=== PATIENT | male | born 1950 | race Hispanic/Latino ===

== ENCOUNTER 2020-05-05 11:22 | Inpatient (IN) | payer BC, MEDICARE ==
[~2020-05-05] VITALS: Ht 175.3 cm; Wt 99.8 kg
[~2020-05-05 11:22] MED LIST: ALLOPURINOL100 MG PO; OXYBUTYNIN CHLO15 MG PO; PENICILLIN V P500 MG PO
[2020-05-05 12:13] LABS: CLARITY,URINE SL CLOUDY (CLEAR); COLOR,URINE YELLOW (YELLOW)
[2020-05-05 12:14] LABS: BILIRUBIN,URINE NEGATIVE (NEGATIVE); KETONES,URINE NEGATIVE (NEGATIVE); LEUKOCYTE ESTERASE ,URINE SMALL (NEGATIVE); NITRITE,URINE NEGATIVE (NEGATIVE); PROTEIN,URINE DIPSTICK 1+ (NEGATIVE); URINE UROBILINOGEN 1 mg/dL (0.2 - 1)
[2020-05-05 12:15] LABS: BACTERIA,URINE RARE /HPF; EPITHELIAL CELLS,URINE FEW /LPF
--- NOTE | 2020-05-05 12:35 | Emergency Department Note ---
History of Present Illnes History of Present Illness Chief Complaint: Genitourinary History of Present Illness This is a 70 year old male arrived to the ED with complaints of supr apubic abdominal pain and urinary retention as well as overflow incontinence for several days. Patient requesting to see Dr. Lynn of the ED. Chief Complaint Comment X 3 DAYS, BURNING WITH URINATION, SPASMS, URGENCY, URINE TRICKLES. DENIES ANY FEVER. 99.5 AT HOME SAME ISSUE 4 YEARS AGO AND TOLD HE HAD A PROSTATE INFECTION AND GIVEN ANTIBIOTICS. 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 Any updates have been documented here. Past Medical History Recent Fever: No Clinical Suspicion of Infectio: No New/Unexplained Change in Ment: No Past Medical History: Hypertension, NE Other Medical History: DVT R LEG BP GOUT Other Surgery: PROSTATE, ACHILLES TENDON BILAT STENTS Social History Smoking Cessation: Never Smoker Counseling Performed: No Alcohol Use: None Any Illegal Drug Use: No Physically hurt or threatened: No Other Last Tetanus: OOD Any Pre-Existing Lines (PICC,: No Review of Systems Review of Systems Constitutional: Reports no symptoms EENTM: Reports no symptoms Cardiovascular: Reports no symptoms Respiratory: Reports no symptoms Gastrointestinal: Reports no symptoms Genitourinary: Reports as per HPI, Reports dysuria, Reports frequency Musculoskeletal: Reports no symptoms Integumentary: Reports no symptoms Neurological: Reports no symptoms Psychological: Reports no symptoms Endocrine: Reports no symptoms Hematological/Lymphatic: Reports no symptoms Physical Exam Related Data Allergies: Coded Allergies: No Known Allergies (Unverified , 05/05/20) Triage Vital Signs Vital Signs Date Time Temp Pulse Resp B/P (MAP) Pulse Ox O2 Delivery O2 Flow Rate FiO2 05/05/20 11:29 98.5 52 18 112/77 Room Air 05/05/20 12:22 100 Vital signs reviewed: Yes Physical Exam CONSTITUTIONAL Constitutional: Present well-developed, Present well-nourished HENT HENT: Present normocephalic, Present atraumatic, Present oropharynx clear/moist, Present nose normal HENT L/R: Present left ext ear normal, Present right ext ear normal EYES Eyes: Reports PERRL, Reports conjunctivae normal NECK Neck: Present ROM normal PULMONARY Pulmonary: Present effort normal, Present breath sounds normal CARDIOVASCULAR Cardiovascular: Present regular rhythm, Present heart sounds normal, Present capillary refill normal, Present normal rate GASTROINTESTINAL Abdominal: Present soft, Present nontender, Present bowel sounds normal GENITOURINARY Genitourinary: Present exam deferred SKIN Skin: Present warm, Present dry MUSCULOSKELETAL Musculoskeletal: Present ROM normal NEUROLOGICAL Neurological: Present alert, Present oriented x 3, Present no gross motor or sensory deficits PSYCHOLOGICAL Psychological: Present mood/affect normal, Present judgement normal Results Laboratory Laboratory Laboratory Tests Test 05/05/20 11:37 Urine Color Yellow (YELLOW) Urine Clarity Sl cloudy (CLEAR) Urine pH 7 (5 - 7) Urine Specific [place] 1.020 (1.010-1.025) Urine Protein 1+ (NEGATIVE) Urine Glucose (UA) Negative (NEGATIVE) Urine Ketones Negative (NEGATIVE) Urine Blood Trace (NEGATIVE) Urine Nitrite Negative (NEGATIVE) Urine Bilirubin Negative (NEGATIVE) Urine Urobilinogen 1 mg/dL (0.2 - 1) Urine Leukocyte Esterase Small (NEGATIVE) Urine RBC 6-10 /HPF (0-5) Urine WBC 6-10 /HPF (0-5) Urine Epithelial Cells Few /LPF (NONE) Urine Bacteria Rare /HPF (NONE) Lab results reviewed: Yes Laboratory comments Laboratory Tests Test 05/05/20 14:29 05/05/20 12:36 05/05/20 11:37 White Blood Count 12.62 x10e3/uL (4.8-10.8) Red Blood Count 5.12 x10e6/uL (4.3-5.7) Hemoglobin 16.4 g/dL (14.0-18.0) Hematocrit 49.5 % (38.2-49.6) Mean Corpuscular Volume 96.7 fL (81-99) Mean Corpuscular Hemoglobin 32.0 pg (28-32) Mean Corpuscular Hemoglobin Concent 33.1 g/dL (31-35) Red Cell Distribution Width 13.3 % (11.7-14.4) Platelet Count 197 x10e3/uL (140-360) Neutrophils (%) (Auto) 72.8 % (38.7-80.0) Lymphocytes (%) (Auto) 16.0 % (18.0-39.1) Monocytes (%) (Auto) 10.5 % (4.4-11.3) Eosinophils (%) (Auto) 0.2 % (0.0-6.0) Basophils (%) (Auto) 0.2 % (0.0-1.0) Neutrophils # (Auto) 9.2 (2.1-6.9) Lymphocytes # (Auto) 2.0 (1.0-3.2) Monocytes # (Auto) 1.3 (0.2-0.8) Eosinophils # (Auto) 0.0 (0.0-0.4) Basophils # (Auto) 0.0 (0.0-0.1) Absolute Immature Granulocyte (auto 0.04 x10e3/uL (0-0.1) Sodium Level 136 mmol/L (136-145) Potassium Level 4.7 mmol/L (3.5-5.1) Chloride Level 101 mmol/L (98-107) Carbon Dioxide Level 27 mmol/L (22-29) Anion Gap 12.7 mmol/L (8-16) Blood Urea Nitrogen 10 mg/dL (7-26) Creatinine 1.20 mg/dL (0.72-1.25) Estimat Glomerular Filtration Rate 60 ML/MIN (60-) BUN/Creatinine Ratio 8 (6-25) Glucose Level 84 mg/dL (74-118) Calcium Level 9.0 mg/dL (8.4-10.2) Total Bilirubin 1.9 mg/dL (0.2-1.2) Aspartate Amino Transf (AST/SGOT) 16 IU/L (5-34) Alanine Aminotransferase (ALT/SGPT) 17 IU/L (0-55) Alkaline Phosphatase 55 IU/L (40-150) Total Protein 7.0 g/dL (6.5-8.1) Albumin 3.5 g/dL (3.5-5.0) Globulin 3.5 g/dL (2.3-3.5) Albumin/Globulin Ratio 1.0 (0.8-2.0) Urine Color Yellow (YELLOW) Urine Clarity Sl cloudy (CLEAR) Urine pH 7 (5 - 7) Urine Specific [place] 1.020 (1.010-1.025) Urine Protein 1+ (NEGATIVE) Urine Glucose (UA) Negative (NEGATIVE) Urine Ketones Negative (NEGATIVE) Urine Blood Trace (NEGATIVE) Urine Nitrite Negative (NEGATIVE) Urine Bilirubin Negative (NEGATIVE) Urine Urobilinogen 1 mg/dL (0.2 - 1) Urine Leukocyte Esterase Small (NEGATIVE) Urine RBC 6-10 /HPF (0-5) Urine WBC 6-10 /HPF (0-5) Urine Epithelial Cells Few /LPF (NONE) Urine Bacteria Rare /HPF (NONE) Assessment & Plan Medical Decision Making MDM 70-year-old male arrives to the ED with complaints of hematuria, dysuria and urinary retention. Patient noted to have a postvoid residual by mouth. Neurology consult, recommended hospital admission. Dr. Lynn requested pt admitted to Dr. Lundberg Assessment & Plan Final Impression: (1) Urinary retention Depart Disposition: ADMITTED Last Vital Signs Date Time Temp Pulse Resp B/P (MAP) Pulse Ox O2 Delivery O2 Flow Rate FiO2 05/05/20 12:22 62 18 116/68 100 Room Air 05/05/20 11:29 98.5 Home Meds Reported Medications Allopurinol (ALLOPURINOL) 100 Mg Tablet, 100 MG PO DAILY, #30 TAB 01/16/15 Oxybutynin Chloride (OXYBUTYNIN CHLORIDE ER) 15 Mg Tab.er.24, 15 MG PO DAILY 01/16/15 Penicillin V Potassium (PENICILLIN V POTASSIUM) 500 Mg Tablet, 500 MG PO TID 01/16/15 LAURENCE HART DO May 05, 2020 12:34
--- OUTSIDE RECORDS SUMMARY | 2020-05-05 12:38 | XMS REPORT | Continuity of Care Document ---
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 Phone [employer] Information [employer] Unavailable Un available Problems Problem Status Onset Date Classification Date Reported Comments Source Pain in joint, other specified sites Active Problem [facility] Pain in joint, pelvic region and thigh Active Problem [facility] Gout, unspecified Active Problem 03/05/2014 [facility] BPH (Hypertrophy (benign) of prostate wi thout urinary obstruction and other lower urinary tract symptoms [LUTS]) Active Problem [facility] Rectal bleed Active Diagnosis 03/05/2014 [facility] Medications Medication Details Route Status Patient Instructions Ordering Provider Order Date Source Tramadol HCl 1 tablet Orally Active 50 mg Orally twice a da y (bid) as needed (prn) Ghebranious 05/22/2013 [facility] Tramadol HCl 1 tablet by mouth Active 50.0 Milligram by mouth twice a day (bid) as needed (prn) Ghebranious 05/17/2013 [facility] Testim 1 application to skin Transdermal Active 1 % Transdermal Once a day Ghebranious 10/03/2012 [facility] Vitamin C as directed Orally Active 500 MG Orally Ghebranious [facility] Allopurinol TAKE 1 TABLET DAILY NA Active 100MG Ghebranious [facility] Vitamin D as directed Orally Active 400 UNIT Orally Ghebranious [facility] Oxybutynin Chloride as directed Orally Active 15 MG Orally daily Ghebranious [facility] Allergies, Adverse Reactions, Alerts Substance Category Reaction Severity Reaction type Status Date Reported Comments Source N.K.D.A. Adverse Reaction Info Not Available Adverse Reaction Active 06/12/2013 [facility] Immunizations No Data Provided for This Section Results No Data Provided for This Section Pathology Reports No Data Provided for This Section Diagnostic Reports No Data Provided for This Section Consultation Notes No Data Provided for This Section Discharge Summaries No Data Provided for This Section History and Physicals No Data Provided for This Section Vital Signs Vital Sign Value Date Comments Source Weight 232 06/12/2013 [facility] Heart Rate 64 06/12/2013 [facility] Diastolic (mm Hg) 70 06/12/2013 [facility] Systolic (mm Hg) 124 06/12/2013 [facility] Weight 236 04/04/2013 [facility] Height 69 0 04/04/2013 [facility] Heart Rate 64 04/04/2013 [facility] Diastolic (mm Hg) 82 04/04/2013 [facility] Systolic (mm Hg) 128 04/04/2013 [facility] Weight 236 04/04/2013 [facility] Height 69 0 04/04/2013 [facility] Heart Rate 64 04/04/2013 [facility] Diastolic (mm Hg) 82 04/04/2013 [facility] Systolic (mm Hg) 128 04/04/2013 [facility] Encounters Location Location Details Encounter Type Encounter Number Reason For Visit Attending Provider ADM Date DC Date Status Source [facility] refill [id number] 04/17/2013 04/17/2013 [facility] refill [id number] 04/17/2013 04/17/2013 [facility] refill [id number] 04/17/2013 04/17/2013 [facility] Refill [id number] 05/22/2013 05/22/2013 [facility] Refill [id number] 05/22/2013 05/22/2013 [facility] Unknown [id number] 06/07/2013 06/07/2013 [facility] Unknown [id number] 06/08/2013 06/08/2013 [facility] HOSP F/U [id number] 06/12/2013 06/12/2013 [facility] Procedures No Data Provided for This Section Assessment and Plan No Data Provided for This Section Plan of Care No Data Provided for This Section Social History Social History Date Source Social History ElementQualifiersDate Rep orted children . 1 Jun 12, 2013 Tobacco Use: . Are you a: never smoker Jun 12, 2013 Marital Status: . Jun 12, 2013 Do you drink alcohol? . 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
--- OUTSIDE RECORDS SUMMARY | 2020-05-05 12:38 | XMS REPORT | Continuity of Care Document ---
Author Author [facility] Organization [facility] Address [address] [place] [address] Phone Unavailable Care Team Providers Care Data Scientist Name Role Phone MANISHA LOUIS M.D. Attphys Unavailable Problems Condition Name Condition Details Condition Category Status Onset Date Resolution Date Last Treatment Date Treating Clinician Comments Source History of Acute embolism and thrombosis of deep vein of lower extremity History of Acute embolism and thrombosis of deep vein of lower extremity Problem Resolved [facility] History of cataract History of cataract Problem Resolved [facility] History of Hernia History of Hernia Problem Resolved [facility] History of Measles without complication History of Measles w ithout complication Problem Resolved [facility] History of mumps History of mumps Problem Resolved [facility] History of Reported Prior Prostate Trouble History of Reported Prior Prostate Trouble Problem Resolved [facility] Pre-operative cardiovascular examination Pre-operative cardiovascular examination Problem Active [facility] Hip pain, right Hip pain, right Problem Active [facility] Acute pain of right knee Acute pain of right knee Problem Active [facility] Gout, unspecified cause, unspecified chronicity, unspe cified site Gout, unspecified cause, unspecified chronicity, unspecified site Problem Active [facility] History of hemorrhoids History of hemorrhoids Problem Resolved [facility] Pain in joint, other specified sites Pain in joint, other specified sites Active Problem 03/05/2014 [facility] Problem Active 2014-03-05 04:17:55 Jeovanny riaelizabeth Moya Pain in joint, pelvic region and thigh Pain in joint, pelvic region and thigh Active Problem 03/05/2014 [facility] Problem Active 2014-03-05 04:17:55 Jeovanny Moya Gout, unspecified Gout , unspecified Active Problem 03/05/2014 [facility] Problem Active 2014-03-05 04:17:55 Bill Moya BPH (Hypertrophy (benign) of prostate wi thout urinary obstruction and other lower urinary tract symptoms [LUTS]) BPH (Hypertrophy (benign) of prostate without urinary obstruction and other lower urinary tract symptoms [LUTS]) Active Problem 03/05/2014 [facility] Problem Active 2014-03-05 04:17:55 Jeovanny benedict [facility] Rectal bleed Rect al bleed Active Diagnosis 03/05/2014 [facility] Diagnosis Active 2014-03-05 04:17:55 Bill Moya Allergies, Adverse Reactions, Alerts Allergy Name Allergy Type Status Severity Reaction(s) Onset Date Inacti ve Date Treating Clinician Comments Source [place]. Active Info Not Available 2013-06-12 00:00:00 Bill Moya Family History Family Member Diagnosis Comments Start Date Stop Date Source Mother Family history of Hemorrhagic Stroke [facility] Mother Family history of Diabetes Mellitus [facility] Mother Family history of Hypertension [facility] Father Family history of Cirrhosis [facility] Sister Family history of Diabetes Mellitus [facility] Brother Family history of Hypertension [facility] Unknown Family Member Family History 2014-03-05 04:17:55 2 04:17:55 Bill Moya Social History Social Habit Start Date Stop Date Quantity Comments Source children 2013-06-12 00:00:00 2013-06-12 00:00:00 Bill Moya Smoking Status Start Date Stop Date Source Former smoker [facility] Medications Ordered Medication Name Filled Medication Name Start Date Stop Da te Current Medication? Ordering Clinician Indication Dosage Frequency Signature (SIG) Comments Components Source Vitamin C 2014-03-05 04:17:55 Yes Judithr Ghebranious as directed [facility] Allopurinol 2014-03-05 04:17:55 Yes Amir Ghebranious TAKE 1 TABLET DAILY [facility] Vitamin D 2014-03-05 04:17:55 Yes Amir Ghebranious as directed [facility] Oxybutynin Chloride 2014-03-05 04:17:55 Yes Amir Ghebran ious as directed [facility] Tramadol HCl 2013-05-22 00:00:00 Yes Amir Ghebranious 1 tablet [facility] Tramadol HCl 2013-05-17 00:00:00 Yes Amir Ghebranious 1 tablet [facility] Testim 2012-10-03 00:00:00 Yes Amir Ghebranious 1 application to skin [facility] Oxybutynin Chloride 5 MG Oral Tablet Oxybutynin Chloride 5 MG Oral Tablet Yes Once a day [facility] Allopurinol 100 MG Oral Tablet Allopurinol 100 MG Oral Tablet Yes QD TAKE 1 TABLET DAILY DIRECTED. [facility] Testim 1 % GEL Testim 1 % GEL Yes AP PLY 1 TUBE DAILY DIRECTED. [facility] traMADol HCl - 50 MG Oral Tablet traMADol HCl - 50 MG Oral Tablet Yes TAKE 1 TABLET EVERY 12 HOURS PRN pain [facility] Meloxicam 7.5 MG Oral Tablet Meloxicam 7.5 MG Oral Tablet Y es TAKE 1 TABLET BY MOUTH EVERY DAY [facility] Vitamin D TABS Vitamin D TABS Yes [facility] Vitamin C CAPS Vitamin C CAPS Yes [facility] Vital Signs Vital Name Observation Time Observation Value Comments Source BP Systolic 2019-07-04 14:26:00 148 mm[Hg] [facility] BP Diastolic 2019-07-04 14:26:00 81 mm[Hg] [facility] Height 2019-07-04 14:26:00 69 [in_us] [facility] Heart Rate 2019-07-04 14:26:00 55 /min [facility] BP Systolic 2018-12-15 12:16:00 134 mm[Hg] [facility] BP Diastolic 2018-12-15 12:16:00 84 mm[Hg] [facility] [place] [facility] Height 2018-12-15 12:16:00 69 [in_us] [facility] Weight 2018-12-15 12:16:00 231 [lb_av] [facility] Body Mass Index Calculated 2018-12-15 12:16:00 34.11 kg/m2 [facility] Heart Rate 2018-12-15 12:16:00 57 /min [facility] O2 SAT 2018-12-15 12:16:00 94 % [facility] BP Systolic 2018-11-02 10:15:00 130 mm[Hg] [facility] BP Diastolic 2018-11-02 10:15:00 87 mm[Hg] [facility] Height 2018-11-02 10:15:00 69 [in_us] [facility] Weight 2018-11-02 10:15:00 235.5 [lb_av] [facility] Body Mass Index Calculated 2018-11-02 10:15:00 34.78 kg/m2 [facility] Temperature 2018-11-02 10:15:00 97.3 [degF] Method: [facility] Heart Rate 2018-11-02 10:15:00 56 /min [facility] O2 SAT 2018-11-02 10:15:00 94 % [facility] Weight 2013-06-12 19:45:00 [facility] Heart Rate 2013-06-12 19:45:00 [facility] Diastolic (mm Hg) 2013-06-12 19:45:00 [facility] Systolic (mm Hg) 2013-06-12 19:45:00 [facility] Weight 2013-04-04 21:45:00 [facility] Height 2013-04-04 21:45:00 [facility] Heart Rate 2013-04-04 21:45:00 [facility] Diastolic (mm Hg) 2013-04-04 21:45:00 [facility] Systolic (mm Hg) 2013-04-04 21:45:00 [facility]anny [facility] Weight 2013-04-04 20:45:00 [facility] Height 2013-04-04 20:45:00 [facility] Heart Rate 2013-04-04 20:45:00 [facility] Diastolic (mm Hg) 2013-04-04 20:45:00 [facility] Systolic (mm Hg) 2013-04-04 20:45:00 [facility]anny [facility] Procedures Procedure Date / Time Performed Performing Clinician [facility] History of Tonsillectomy [facility] History of Prostate Surgery [facility] History of Subcutaneous Tenotomy Of Achilles Tendon [facility] History of Knee replacement [facility] Encounters Start Date/Time End Date/Time Encounter Type Admission Type Attendi [facility] Facility Care Department Encounter ID Source 2019-07-04 13:00:00 2019-07-04 13:00:00 Appointment; MANISHA LOUIS M.D. SZETO, JOCELYN, M.D. [facility] at [facility] [id number] [facility] 2019-06-19 11:00:00 2019-06-19 11:00:00 Appointment; MANISHA LOUIS M.D. SZETO, JOCELYN, M.D. [facility] [id number] [facility] 2019-02-05 18:15:00 2019-02-05 15:13:00 Inpatient [id number] 2018-12-15 11:30:00 2018-12-15 11:30:00 Appointment; MANISHA LOUIS M.D. SZETO, JOCELYN, M.D. [facility] Orthoped[facility] at [facility] [id number] [facility] 2018-12-13 13:00:00 2018-12-13 13:00:00 Appointment; MANISHA LOUIS M.D. SZETO, JOCELYN, M.D. [facility] [id number] [facility] 2018-11-02 09:30:00 2018-11-02 09:30:00 Appointment; MANISHA LOUIS M.D. SZETO, JOCELYN, M.D. [facility] Orthoped[facility] at [facility] [id number] [facility] 2013-06-12 14:45:00 2013-06-12 14:45:00 Outpatient [facility] [id number] [employer] 2013-06-07 18:11:00 2013-06-07 18:11:00 Outpatient [facility] [id number] [employer] 2013-04-17 12:09:00 2013-04-17 12:09:00 Outpatient [facility] [id number] [employer] Results Test Description Test Time Test Comments Results Result Comments Source [[facility]] CMP W/EGFR 2018-11-02 10:33:01 Test Item Sodium Level (test code = 2951-2) 138 {mEq/l} 135-145 Potassium Level (test code = 2823-3) 4.3 {mEq/l} 3.5-5.1 Chloride Level (test code = 2075-0) 103 {mEq/l} 95-109 Carbon Dioxide (test code = 8-9) 28 {mEq/l} 24-32 AGAP (test code = 12335-3) 11.3 {mEq/l} 10.0-20.0 Glucose Lvl (test code = 2345-7) 96 mg/dl 70-99 Adult reference range values reflect the clinical guidelinesof the [place] [employer]. Creatinine Lvl (test code = 2160-0) 1.20 mg/dl 0.50-1.40 Blood Urea Nitrogen (test code = 3094-0) 16 mg/dl 7-22 BUN/Creatinine Ratio (test code = 3097-3) 13 6-25 Total Protein (test code = 2885-2) 7.5 g/dl 6.4-8.4 Albumin Lvl (test code = 1751-7) 4.0 g/dl 3.5-5.0 Globulin (test code = 23080-1) 3.5 g/dl 2.7-4.2 A/G Ratio (test code = 1759-0) 1.1 0.7-1.6 Calcium Level Total (test code = 10829-7) 8.6 mg/dl 8.5-10.5 ALT (test code = 1743-4) 27 u/l 0-65 AST (test code = 65689-6) 13 u/l 0-37 Bili Total; Above High Threshold (test code = 1975-2) 1.5 mg/dl 0.2-1.3 Alk Phos (test code = 1783-0) 53 u/l 39-136 eGFR (test code = 65933-0) 61 {ML/MIN/1.7} The eGFR is calculated using the CKD-EPI formula. In most young, healthyindividuals the eGFR will be >90 mL/min/1.73m2. The eGFR declines with age. AneGFR of 60-89 may be normal in some populations, particularly the elderly, forwhom the CKD-EPI formula has not been extensively validated. Use of the eGFR isnot recommended in the following populations:Individuals with unstable creatinine concentrations, including patients and those with serious co-morbid conditions.Patients with extremes in muscle mass or diet.The data above are obtained from the National Kidney Disease Education Program(NKDEP) which additionally recommends that when the eGFR is used in patientswith extremes of body mass index for purposes of drug dosing, the eGFR shouldbe multiplied by the estimated BMI. [facility][QLH] URIC [id number] 10:33:01* Test Item Value Reference Range Interpretation Comments Uric Acid (test code = 3084-1) 6.2 mg/dl 3.8-8.0 [facility][U] XRAY KNEE 4 OR MORE VWS RIGHT [id number] 09:36:00Images acquired, not reported on this accession number.[facility]
[2020-05-05 12:49] LABS: BASOPHILS % 0.2 % (0.0-1.0); EOSINOPHILS % 0.2 % (0.0-6.0); HEMATOCRIT 49.5 % (38.2-49.6); HEMOGLOBIN 16.4 g/dL (14.0-18.0); MEAN CORPUSCULAR HGB CONC 33.1 g/dL (31-35); MEAN CORPUSCULAR VOLUME 96.7 fL (81-99); MONOCYTES # (AUTO) 1.3 (0.2-0.8); MONOCYTES % 10.5 % (4.4-11.3); NEUTROPHILS # (AUTO) 9.2 (2.1-6.9); NEUTROPHILS % 72.8 % (38.7-80.0); PLATELET COUNT 197 x10e3/uL (140-360); RED BLOOD COUNT 5.12 x10e6/uL (4.3-5.7); RED CELL DISTRIBUTION WIDTH 13.3 % (11.7-14.4)
[2020-05-05 13:16] LABS: ALBUMIN 3.5 g/dL (3.5-5.0); ANION GAP 12.7 mmol/L (8-16); CREATININE, SERUM 1.2 mg/dL (0.72-1.25); POTASSIUM 4.7 mmol/L (3.5-5.1)
--- NOTE | 2020-05-05 13:53 | NUR ---
BLADDER SCAN 138
--- OUTSIDE RECORDS SUMMARY | 2020-05-05 15:23 | XMS REPORT | Continuity of Care Document ---
Author Author [facility] Organization [facility] Address [address] [place] [address] Phone Unavailable Care Team Providers Care Training Specialist Name Role Phone MANISHA LOUIS M.D. Attphys Unavailable Problems Condition Name Condition Details Condition Category Status Onset Date Resolution Date Last Treatment Date Treating Clinician Comments Source History of Acute embolism and thrombosis of deep vein of lower extremity History of Acute embolism and thrombosis of deep vein of lower extremity Problem Resolved [facility] History of cataract History of cataract Problem Resolved [facility] History of Hernia History of Hernia Problem Resolved [facility] History of Measles without complication History of Measles w ithout complication Problem Resolved [facility] History of mumps History of mumps Problem Resolved [facility] History of Reported Prior Prostate Trouble History of Reported Prior Prostate Trouble Problem Resolved [facility] Pre-operative cardiovascular examination Pre-operative cardiovascular examination Problem Active [facility] Hip pain, right Hip pain, right Problem Active [facility] Acute pain of right knee Acute pain of right knee Problem Active [facility] Gout, unspecified cause, unspecified chronicity, unspe cified site Gout, unspecified cause, unspecified chronicity, unspecified site Problem Active [facility] History of hemorrhoids History of hemorrhoids Problem Resolved [facility] Pain in joint, other specified sites [...] Source Mother Family history of Hemorrhagic Stroke [facility] Mother Family history of Diabetes Mellitus [facility] Mother Family history of Hypertension [facility] Father Family history of Cirrhosis [facility] Sister Family history of Diabetes Mellitus [facility] Brother Family history of Hypertension [facility] Unknown Family Member Family History 2014-03-05 04:17:55 2 04:17:55 Bill Moya Social History Social Habit Start Date Stop Date Quantity Comments Source children 2013-06-12 00:00:00 2013-06-12 00:00:00 Bill Moya Smoking Status Start Date Stop Date Source Former smoker [facility] Medications Ordered Medication Name Filled Medication Name Start Date Stop Da te Current Medication? Ordering Clinician Indication Dosage Frequency Signature (SIG) Comments Components Source Vitamin C 2014-03-05 04:17:55 Yes Judithr Ghebranious as directed [facility] Allopurinol 2014-03-05 04:17:55 Yes Amir Ghebranious TAKE 1 TABLET DAILY [facility] Vitamin D 2014-03-05 04:17:55 Yes Amir Ghebranious as directed [facility] Oxybutynin Chloride 2014-03-05 04:17:55 Yes Amir Ghebran ious as directed [facility] Tramadol HCl 2013-05-22 00:00:00 Yes Amir Ghebranious 1 tablet [facility] Tramadol HCl 2013-05-17 00:00:00 Yes Amir Ghebranious 1 tablet [facility] Testim 2012-10-03 00:00:00 Yes Amir Ghebranious 1 application to skin [facility] Oxybutynin Chloride 5 MG Oral Tablet Oxybutynin Chloride 5 MG Oral Tablet Yes Once a day [facility] Allopurinol 100 MG Oral Tablet Allopurinol 100 MG Oral Tablet Yes QD TAKE 1 TABLET DAILY DIRECTED. [facility] Testim 1 % GEL Testim 1 % GEL Yes AP PLY 1 TUBE DAILY DIRECTED. [facility] traMADol HCl - 50 MG Oral Tablet traMADol HCl - 50 MG Oral Tablet Yes TAKE 1 TABLET EVERY 12 HOURS PRN pain [facility] Meloxicam 7.5 MG Oral Tablet Meloxicam 7.5 MG Oral Tablet Y es TAKE 1 TABLET BY MOUTH EVERY DAY [facility] Vitamin D TABS Vitamin D TABS Yes [facility] Vitamin C CAPS Vitamin C CAPS Yes [facility] Vital Signs Vital Name Observation Time Observation Value Comments Source BP Systolic 2019-07-04 14:26:00 148 mm[Hg] [facility] BP Diastolic 2019-07-04 14:26:00 81 mm[Hg] [facility] Height 2019-07-04 14:26:00 69 [in_us] [facility] Heart Rate 2019-07-04 14:26:00 55 /min [facility] BP Systolic 2018-12-15 12:16:00 134 mm[Hg] [facility] BP Diastolic 2018-12-15 12:16:00 84 mm[Hg] [facility] [place] [facility] Height 2018-12-15 12:16:00 69 [in_us] [facility] Weight 2018-12-15 12:16:00 231 [lb_av] [facility] Body Mass Index Calculated 2018-12-15 12:16:00 34.11 kg/m2 [facility] Heart Rate 2018-12-15 12:16:00 57 /min [facility] O2 SAT 2018-12-15 12:16:00 94 % [facility] BP Systolic 2018-11-02 10:15:00 130 mm[Hg] [facility] BP Diastolic 2018-11-02 10:15:00 87 mm[Hg] [facility] Height 2018-11-02 10:15:00 69 [in_us] [facility] Weight 2018-11-02 10:15:00 235.5 [lb_av] [facility] Body Mass Index Calculated 2018-11-02 10:15:00 34.78 kg/m2 [facility] Temperature 2018-11-02 10:15:00 97.3 [degF] Method: Oral [facility] Heart Rate 2018-11-02 10:15:00 56 /min [facility] O2 SAT 2018-11-02 10:15:00 94 % [facility] Weight 2013-06-12 19:45:00 [facility] Heart Rate 2013-06-12 19:45:00 [facility] Diastolic (mm Hg) 2013-06-12 19:45:00 [facility] Systolic (mm Hg) 2013-06-12 19:45:00 [facility] Weight 2013-04-04 21:45:00 [facility] Height 2013-04-04 21:45:00 [facility] Heart Rate 2013-04-04 21:45:00 [facility] Diastolic (mm Hg) 2013-04-04 21:45:00 [facility] Systolic (mm Hg) 2013-04-04 21:45:00 [facility] Weight 2013-04-04 20:45:00 [facility] Height 2013-04-04 20:45:00 [facility] Heart Rate 2013-04-04 20:45:00 [facility] Diastolic (mm Hg) 2013-04-04 20:45:00 [facility] Systolic (mm Hg) 2013-04-04 20:45:00 [facility] Procedures Procedure Date / Time Performed Performing Clinician [facility] e History of Tonsillectomy [facility] History of Prostate Surgery [facility] History of Subcutaneous Tenotomy Of Achilles Tendon [facility] History of Knee replacement [facility] Encounters Start Date/Time End Date/Time Encounter Type Admission Type [facility] Facility Care Department Encounter ID Source 2019-07-04 13:00:00 2019-07-04 13:00:00 Appointment; MANISHA LOUIS M.D. SZETO, JOCELYN, M.D. [facility] Orthopedics at [facility] [id number] [facility] 2019-06-19 11:00:00 2019-06-19 11:00:00 Appointment; MANISHA LOUIS M.D. SZETO, JOCELYN, M.D. [facility] [id number] [facility] 2019-02-05 18:15:00 2019-02-05 15:13:00 Inpatient E [id number] 2018-12-15 11:30:00 2018-12-15 11:30:00 Appointment; MANISHA LOUIS M.D. SZETO, JOCELYN, M.D. [facility] Orthopedics at [facility] [id number] [facility] 2018-12-13 13:00:00 2018-12-13 13:00:00 Appointment; MANISHA LOUIS M.D. SZETO, JOCELYN, M.D. [facility] [id number] [facility] 2018-11-02 09:30:00 2018-11-02 09:30:00 Appointment; MANISHA LOUIS M.D. SZETO, JOCELYN, M.D. [facility] Orthopedics at [facility] [id number] [facility] 2013-06-12 14:45:00 2013-06-12 14:45:00 Outpatient [facility] [id number] [employer] 2013-06-07 18:11:00 2013-06-07 18:11:00 Outpatient [facility] [id number] [employer]Works 2013-04-17 12:09:00 2013-04-17 12:09:00 Outpatient [facility] [id number] [employer] Results Test Description Test Time Test Comments Results Result Comments Source [[facility]] CMP W/EGFR 2018-11-02 10:33:01 Test Item Sodium Level (test code = 2951-2) 138 {mEq/l} 135-145 Potassium Level (test code = 2823-3) 4.3 {mEq/l} 3.5-5.1 Chloride Level (test code = 2075-0) 103 {mEq/l} 95-109 Carbon Dioxide (test code = 8-9) 28 {mEq/l} 24-32 AGAP (test code = 76364-9) 11.3 {mEq/l} 10.0-20.0 Glucose Lvl (test code = 2345-7) 96 mg/dl 70-99 Adult reference range values reflect the clinical guidelinesof the [place] [employer]. Creatinine Lvl (test code = 2160-0) 1.20 mg/dl 0.50-1.40 Blood Urea Nitrogen (test code = 3094-0) 16 mg/dl 7-22 BUN/Creatinine Ratio (test code = 3097-3) 13 6-25 Total Protein (test code = 2885-2) 7.5 g/dl 6.4-8.4 Albumin Lvl (test code = 1751-7) 4.0 g/dl 3.5-5.0 Globulin (test code = 33229-9) 3.5 g/dl 2.7-4.2 A/G Ratio (test code = 1759-0) 1.1 0.7-1.6 Calcium Level Total (test code = 96401-0) 8.6 mg/dl 8.5-10.5 ALT (test code = 1743-4) 27 u/l 0-65 AST (test code = 71320-3) 13 u/l 0-37 Bili Total; Above High Threshold (test code = 1975-2) 1.5 mg/dl 0.2-1.3 Alk Phos (test code = 1783-0) 53 u/l 39-136 eGFR (test code = 32993-0) 61 {ML/MIN/1.7} The eGFR is calculated using [...] eGFR shouldbe multiplied by the estimated BMI. [facility][QLH] URIC [id number] 10:33:01* Test Item Value Reference Range Interpretation Comments Uric Acid (test code = 3084-1) 6.2 mg/dl 3.8-8.0 [facility][U] XRAY KNEE 4 OR MORE VWS RIGHT [id number] 09:36:00Images acquired, not reported on this accession number.[facility]
--- OUTSIDE RECORDS SUMMARY | 2020-05-05 15:23 | XMS REPORT | Continuity of Care Document ---
Author Author [employer], VENESSA MONGE Organization [employer] Address Unknown Phone Unavailable Care Team Providers Care Float Remover Name Role Phone [employer] Unavailable Un available Problems Problem Status Onset Date Classification Date Reported Comments Source Pain in joint, other specified sites Active Problem [facility] Pain in joint, pelvic region and thigh Active Problem [facility] Gout, unspecified Active Problem 03/05/2014 [facility] BPH (Hypertrophy (benign) of prostate wi thout urinary obstruction and other lower urinary tract symptoms [LUTS]) Active Problem [facility] Rectal bleed Active Diagnosis 03/05/2014 [facility] Medications Medication Details Route Status Patient Instructions Ordering Provider Order Date Source Tramadol HCl 1 tablet Orally Active 50 mg Orally twice a da y (bid) as needed (prn) Ghebranious 05/22/2013 [facility] Tramadol HCl 1 tablet by mouth Active 50.0 Milligram by mouth twice a day (bid) as needed (prn) Ghebranious 05/17/2013 [facility] Testim 1 application to skin Transdermal Active 1 % Transdermal Once a day Ghebranious 10/03/2012 [facility] Vitamin C as directed Orally Active 500 MG Orally Ghebranious [facility] Allopurinol TAKE 1 TABLET DAILY NA Active 100MG Ghebranious [facility] Vitamin D as directed Orally Active 400 UNIT Orally Ghebranious [facility] Oxybutynin Chloride as directed Orally Active 15 MG Orally daily Ghebranious [facility] Allergies, Adverse Reactions, Alerts Substance Category Reaction Severity Reaction type Status Date Reported Comments Source N.K.D.A. Adverse Reaction Info Not Available Adverse Reaction Active 06/12/2013 [facility] Immunizations No Data [...] Provider ADM Date DC Date Status Source [facility] refill [id number] 04/17/2013 04/17/2013 [facility] refill [id number] 04/17/2013 04/17/2013 [facility] refill [id number] 04/17/2013 04/17/2013 [facility] Refill [id number] 05/22/2013 05/22/2013 [facility] Refill [id number] 05/22/2013 05/22/2013 [facility] Unknown [id number] 06/07/2013 06/07/2013 [facility] Unknown [id number] 06/08/2013 06/08/2013 [facility] HOSP F/U [id number] 06/12/2013 06/12/2013 [facility] Procedures No [...] Data Base Specialist Jun 12, 2013 06/12/2013 [facility] Family History Value Date S ource QualifierDescriptionCommentDate Reported Mother HTN Jun 12, 2013 Siblings HTN Jun 12, 2013 03/05/2014 [facility] Advance Directives No Data Provided for This Section Functional Status No Data Provided for This Section
--- NOTE | 2020-05-05 16:01 | NUR ---
DR. CORDOVA AT BEDSIDE EVALUATING PATIENT
[2020-05-05] MEDS ORDERED: CEFTRIAXONE SOD 1 GM/NS 50 ML 50 ML IV ONE (17:15)
[2020-05-05] MEDS ORDERED: HYDRALAZINE HCL 25 MG TAB PO PRN (18:30)
[2020-05-05] MEDS ORDERED: HYDROCODONE/APAP 5MG-325MG TAB PO PRN (18:30)
[2020-05-05] MEDS ORDERED: TAMSULOSIN HCL 0.4 MG CAP PO ONE (18:50)
[2020-05-05 20:00] VITALS: BP 108/70
[2020-05-05] MEDS: SODIUM CHLORIDE 0.9% 1000ML 1,000 ML IV SCH (20:18)
[2020-05-05 21:00] VITALS: BP 108/70
[2020-05-05] MEDS ORDERED: METOPROLOL TART25 MG PO (23:01)
[2020-05-05] MEDS ORDERED: PLAVIX75 MG PO (23:01)
[2020-05-05] MEDS ORDERED: MYRBETRIQ50 MG PO (23:01)
[2020-05-05] MEDS ORDERED: LISINOPRIL10 MG PO (23:01)
[2020-05-05] MEDS ORDERED: FINASTERIDE5 MG PO (23:01)
[2020-05-05] MEDS ORDERED: LIPITOR20 MG PO (23:01)
[2020-05-05] MEDS ORDERED: LEXAPRO10 MG PO (23:01)
[2020-05-05] MEDS ORDERED: ASPIRIN81 MG PO (23:01)
[2020-05-05 23:49] VITALS: BP 108/70
[2020-05-06] VITALS (8 sets, daily range): BP systolic 101–115; BP diastolic 56–71
--- NOTE | 2020-05-06 00:54 | History and Physical ---
CHIEF COMPLAINT: Urinary retention and abdominal pain with enlarged prostate and recurrent urinary tract infection, prostatitis. HISTORY OF PRESENT ILLNESS: The patient is a 70-year-old male, came to emergency room complaining of suprapubic abdominal pain associated with distention, urinary retention, and also with incontinence palpable for the past few days. The patient is also having problems recurrently. He had TURP procedure years ago. The patient complained of increasing burning sensation when he urinates associated with spasm, urgency, and trickles. The patient stated this has been going on worsening for the past three days, but prior to that he had episodic problem. The patient is now admitted for further treatment. Antibiotic initiated. Morel catheter placed. The patient will be seen by Dr. Win Lynn, his urologist. PAST MEDICAL HISTORY: Enlarged prostate. History of TURP. Hypertension. History of DVT of the right lower extremity. Gout. Prostate with TURP procedure. Bilateral deep tendon repair. Coronary artery disease with stent placement. SOCIAL HISTORY: The patient does not smoke or use alcohol. No regular drugs. ALLERGIES: NO KNOWN ALLERGIES. HOME MEDICATIONS: The patient is on allopurinol, oxybutynin, and penicillin. REVIEW OF SYSTEMS: Abdominal and suprapubic distention with urinary retention and pain. Dysuria. Urgency. Urinary trickle. No chest pain. No shortness of breath. No headaches. No visual changes. No neurological deficit. PHYSICAL EXAMINATION: VITAL SIGNS: Temperature is 99, blood pressure 108/70, pulse rate is 54, respirations 20. GENERAL: The patient is not in acute distress. HEENT: Normocephalic, atraumatic. Anicteric. NECK: Supple grossly. PULMONARY: Diminished breath sounds bilaterally. CARDIOVASCULAR: S1, S2. Regular rate and rhythm. ABDOMEN: Discomfort with guarding distention in the suprapubic area. Morel catheter placement. EXTREMITIES: No cyanosis or edema. NEUROLOGIC: No focal deficit. LABORATORY DATA: WBC 13, hemoglobin 16.4, hematocrit of 49.5, platelets 197. Chemistry; sodium 136, potassium 4.7, chloride 101, bicarb 27, BUN 10, creatinine 1.2, glucose is 84. Serology; COVID-19 PCR pending. Urinalysis; cloudy urine, 1+ protein, trace blood, small leukocyte esterase, wbc of 10. IMPRESSION: 1. Urinary retention post Morel catheter placement. 2. Enlarged prostate with recurrent urinary tract infection and prostatitis. 3. History of TURP procedures. 4. Baseline hypertension, dyslipidemia, and gout. PLAN: Continue with antibiotics, Rocephin. Consultation with Dr. Win Lynn. The patient will need TURP after treatment for the bladder infection. Repeat lab work as mentioned. We will resume home medication. We will get chest x-ray portable. We will follow up on recommendation by Dr. Win Lynn. MD KELLEY Mak/MODL /[id number]
[2020-05-06] MEDS: SODIUM CHLORIDE 0.9% 1000ML 1,000 ML IV SCH ×2 (04:47→16:57)
[2020-05-06] MEDS: CEFTRIAXONE SOD 1 GM/NS 50 ML 50 ML IV SCH ×2 (04:47→16:57)
[2020-05-06 06:04] LABS: BASOPHILS % 0.3 % (0.0-1.0); EOSINOPHILS % 0.2 % (0.0-6.0); HEMATOCRIT 45.2 % (38.2-49.6); HEMOGLOBIN 15.3 g/dL (14.0-18.0); LYMPHOCYTES % 15.4 % (18.0-39.1); MEAN CORPUSCULAR HEMOGLOBIN 32.3 pg (28-32); MEAN CORPUSCULAR HGB CONC 33.8 g/dL (31-35); MEAN CORPUSCULAR VOLUME 95.6 fL (81-99); MONOCYTES # (AUTO) 1.2 (0.2-0.8); MONOCYTES % 9.4 % (4.4-11.3); NEUTROPHILS # (AUTO) 9.5 (2.1-6.9); NEUTROPHILS % 74.5 % (38.7-80.0); PLATELET COUNT 173 x10e3/uL (140-360); RED BLOOD COUNT 4.73 x10e6/uL (4.3-5.7); RED CELL DISTRIBUTION WIDTH 13.4 % (11.7-14.4)
[2020-05-06 06:45] LABS: ALBUMIN/GLOBULIN RATIO 0.9 (0.8-2.0); ANION GAP 12.8 mmol/L (8-16); CALCIUM 8.6 mg/dL (8.4-10.2); CREATININE, SERUM 1.21 mg/dL (0.72-1.25); POTASSIUM 4.8 mmol/L (3.5-5.1)
--- NOTE | 2020-05-06 07:00 | NUR ---
RECEIVED BEDSIDE SHIFT REPORT FROM OFF GOING NIGHT NURSE. PATIENT ABLE TO VOICE NEEDS. PATIENT IN STABLE CONDITION, NO S/S OF DISTRESS NOTED. RESPIRATIONS, EVEN AND NONLABORED. TELEMETRY APPLIED. MADDOX CATHETER APPLIED DRAINING DARK RED URINE INTO THE DRAINAGE BAG. IV FLUIDS INFUSING, SITE ASYMPTOMATIC AND PATENT, TRANSPARENT DRESSING C/D/I. BED IN LOWEST POSITION AND LOCKED, SIDE RAILS X 2, NONSKID SOCKS APPLIED. CALL LIGHT WITHIN REACH.
[2020-05-06] MEDS: FAMOTIDINE 20 MG TAB PO SCH ×2 (09:07→16:57)
[2020-05-06] MEDS: ALLOPURINOL 100 MG TAB PO SCH (09:08)
[2020-05-06] MEDS: OXYBUTYNIN CHLORIDE XL 5 MG TAB PO SCH (09:08)
--- NOTE | 2020-05-06 19:08 | NUR ---
COMPLETED BEDSIDE SHIFT REPORT AND ROUNDING WITH ONCOMING NIGHT NURSE. PATIENT ABLE TO VOICE NEEDS. PATIENT IN STABLE CONDITION, NO S/S OF DISTRESS NOTED. RESPIRATIONS, EVEN AND NONLABORED. TELEMETRY APPLIED. MADDOX CATHETER APPLIED DRAINING DARK RED URINE INTO THE DRAINAGE BAG. IV FLUIDS INFUSING, SITE ASYMPTOMATIC AND PATENT, TRANSPARENT DRESSING C/D/I. BED IN LOWEST POSITION AND LOCKED, SIDE RAILS X 2, NONSKID SOCKS APPLIED. CALL LIGHT WITHIN REACH.
[2020-05-06] MEDS: TAMSULOSIN HCL 0.4 MG CAP PO SCH (20:23)
[2020-05-07] VITALS (8 sets, daily range): BP systolic 106–120; BP diastolic 61–77
[2020-05-07] MEDS: SODIUM CHLORIDE 0.9% 1000ML 1,000 ML IV SCH ×3 (01:30→22:02)
[2020-05-07] MEDS: CEFTRIAXONE SOD 1 GM/NS 50 ML 50 ML IV SCH ×2 (05:32→16:40)
--- NOTE | 2020-05-07 06:40 | NUR ---
RECEIVED BEDSIDE SHIFT REPORT FROM OFF GOING NURSE. PATIENT IS RESTING IN BED. NO ACUTE DISTRESS NOTED AT THIS TIME. CALL LIGHT WITHIN REACH, BED IN THE LOWEST POSITION.
[2020-05-07 07:07] LABS: BASOPHILS % 0.3 % (0.0-1.0); EOSINOPHILS # (AUTO) 0.1 (0.0-0.4); EOSINOPHILS % 0.8 % (0.0-6.0); HEMATOCRIT 43.9 % (38.2-49.6); HEMOGLOBIN 15.1 g/dL (14.0-18.0); LYMPHOCYTES # (AUTO) 2.2 (1.0-3.2); LYMPHOCYTES % 21.2 % (18.0-39.1); MEAN CORPUSCULAR HEMOGLOBIN 32.7 pg (28-32); MEAN CORPUSCULAR HGB CONC 34.4 g/dL (31-35); MONOCYTES # (AUTO) 1.1 (0.2-0.8); MONOCYTES % 10.4 % (4.4-11.3); NEUTROPHILS # (AUTO) 6.8 (2.1-6.9); NEUTROPHILS % 66.5 % (38.7-80.0); PLATELET COUNT 176 x10e3/uL (140-360); RED BLOOD COUNT 4.62 x10e6/uL (4.3-5.7); RED CELL DISTRIBUTION WIDTH 13.2 % (11.7-14.4)
[2020-05-07 07:22] LABS: ANION GAP 11.2 mmol/L (8-16); BLOOD UREA NITROGEN 12 mg/dL (7-26); BUN/CREATININE RATIO 10 (6-25); CALCIUM 8.1 mg/dL (8.4-10.2); CARBON DIOXIDE 26 mmol/L (22-29); CHLORIDE 104 mmol/L (98-107); CREATININE, SERUM 1.18 mg/dL (0.72-1.25); EST GLOMERULAR FILTRATION RATE > 60 ML/MIN (60-); GLUCOSE 93 mg/dL (74-118); POTASSIUM 4.2 mmol/L (3.5-5.1); SODIUM 137 mmol/L (136-145)
[2020-05-07] MEDS: FAMOTIDINE 20 MG TAB PO SCH ×2 (08:36→16:40)
[2020-05-07] MEDS: OXYBUTYNIN CHLORIDE XL 5 MG TAB PO SCH (08:36)
[2020-05-07] MEDS: ALLOPURINOL 100 MG TAB PO SCH (08:37)
[2020-05-07] MEDS: ESCITALOPRAM OXALATE 10 MG TAB PO SCH (17:09)
--- NOTE | 2020-05-07 17:17 | NUR ---
ASKED DR. MACKENZIE IF I CAN CONTINUE HOME MEDICATIONS FOR PATIENT. STATED "NO".
--- NOTE | 2020-05-07 19:07 | NUR ---
BEDSIDE SHIFT REPORT GIVEN TO ONCOMING NURSE. PATIENT IS RESTING IN RECLINER, NO ACUTE DISTRESS NOTED AT THIS TIME. AT BEDSIDE. CALL LIGHT WITHIN REACH. BED IN THE LOWEST POSITION.
[2020-05-07] MEDS: TAMSULOSIN HCL 0.4 MG CAP PO SCH (20:19)
[2020-05-08] VITALS (7 sets, daily range): BP systolic 102–126; BP diastolic 56–94
[2020-05-08] MEDS: CEFTRIAXONE SOD 1 GM/NS 50 ML 50 ML IV SCH (05:46)
--- NOTE | 2020-05-08 06:30 | NUR ---
Received bedside shift report from off going nurse. Patient is resting in bed, no acute distress noted at this time. Call light within reach. Bed in the lowest position.
[2020-05-08] MEDS: OXYBUTYNIN CHLORIDE XL 5 MG TAB PO SCH (08:21)
[2020-05-08] MEDS: ALLOPURINOL 100 MG TAB PO SCH (08:21)
[2020-05-08] MEDS: ESCITALOPRAM OXALATE 10 MG TAB PO SCH (08:21)
[2020-05-08] MEDS: FAMOTIDINE 20 MG TAB PO SCH ×2 (08:21→16:33)
[2020-05-08] MEDS: FINASTERIDE 5 MG TAB PO SCH (08:21)
[2020-05-08] MEDS: AMPICILLIN SOD 1 GM/NS 50ML 50 ML IV SCH ×2 (09:34→17:00)
[2020-05-08] MEDS ORDERED: SODIUM CHLORIDE 0.9% 250ML 250 ML ONE (10:53)
[2020-05-08] MEDS ORDERED: IOPAMIDOL 370 MG/ML 200 ML INFUS..BTL INJ ONE (10:53)
--- NOTE | 2020-05-08 12:35 | Diagnostic Imaging Report ---
CT of the abdomen and pelvis with contrast TECHNIQUE: CT of the abdomen and pelvis CT of the abdomen and pelvis with contrast TECHNIQUE: CT of the abdomen and pelvis WITHOUT and WITH intravenous contrast and WITHOUT oral contrast. Dose modulation, iterative reconstruction, and/or weight-based adjustment of the mA/kV was utilized to reduce the radiation dose to as low as reasonably achievable. IV CONTRAST: 100 mL of Isovue-370 ORAL CONTRAST: None RADIATION DOSE: Total DLP: 1757 mGy*cm COMPLICATIONS: None INDICATION: ^HEMATURIA PROTOCOL ^[id number] ^5. COMPARISON: None. FINDINGS: LOWER THORAX: Dependent subsegmental atelectasis is noted. Coronary artery calcifications are noted. Small hiatal hernia is noted. HEPATOBILIARY: No focal hepatic lesions. Gallbladder is unremarkable. No biliary ductal dilatation. SPLEEN: No splenomegaly. PANCREAS: No focal masses or ductal dilatation. ADRENALS: No adrenal nodules. KIDNEYS/URETERS: Noncontrast images are negative for renal calculus. Negative for ureteral or bladder calculus. Postcontrast images damages symmetric cortical enhancement without suspicious enhancing mass. Symmetric excretion of contrast is noted within nondilated ureters. Negative for intraluminal upper urinary tract filling defect. PELVIC ORGANS/BLADDER: Urinary bladder is decompressed by Morel catheter with a few foci of air. There is questionable wall thickening versus artifact of underdistention. Prostate is enlarged measuring approximately 6.1 x 5.0 x 4.4 cm for a total volume of 87 cc. PERITONEUM/RETROPERITONEUM: No free air or fluid. Supraumbilical fat-containing hernia is noted. Umbilical fat-containing hernia is noted. LYMPH NODES: No lymphadenopathy. VESSELS: Negative for abdominal aortic aneurysm. GI TRACT: Negative for bowel obstruction. Stomach and portions of the colon are decompressed limiting evaluation. Normal appendix is noted. Numerous diverticula are identified within the sigmoid colon without surrounding inflammatory changes. BONES AND SOFT TISSUES: No acute osseous abnormality. Advanced facet arthropathy the lower lumbar spine is noted. Mild to moderate multilevel disc space narrowing is noted. No suspicious lytic or blastic lesion is noted. Postsurgical change from partially visualized right hip arthroplasty are noted. Moderate to severe degenerative change of the left hip joint space is noted with near complete joint space loss, particular sclerosis and large osteophyte formation. Pubic symphysis is not widened. Soft tissues are unremarkable. IMPRESSION: 1. Negative for nephrolithiasis. Symmetric cortical enhancement without suspicious mass or intraluminal upper urinary tract filling defect is noted. 2. Urinary bladder is decompressed by Morel catheter with questionable wall thickening. 3. Prostatomegaly. 4. Uncomplicated colonic diverticulosis. 5. Coronary artery calcifications. 6. Small hiatal hernia. 7. Fat-containing supraumbilical and umbilical hernias. 8. Severe osteoarthritis of the left hip. Advanced facet arthropathy the lower lumbar spine. Postsurgical changes from right hip arthroplasty. Signed by: Robert Toney MD on 05/08/2020 12:32 PM
--- NOTE | 2020-05-08 19:06 | NUR ---
BEDSIDE SHIFT REPORT GIVEN TO ONCOMING NURSE. PATIENT IS SITTING UP IN RECLINER, NO ACUTE DISTRESS NOTED. CALL LIGHT WITHIN REACH. BED IN THE LOWEST POSITION.
[2020-05-08] MEDS: TAMSULOSIN HCL 0.4 MG CAP PO SCH (20:06)
[2020-05-08] MEDS: SODIUM CHLORIDE 0.9% 1000ML 1,000 ML IV SCH (20:06)
[2020-05-09] VITALS (7 sets, daily range): BP systolic 118–129; BP diastolic 69–81
[2020-05-09] MEDS: SODIUM CHLORIDE 0.9% 1000ML 1,000 ML IV SCH ×2 (00:42→11:53)
[2020-05-09] MEDS: AMPICILLIN SOD 1 GM/NS 50ML 50 ML IV SCH ×3 (02:19→17:31)
[2020-05-09] MEDS: FAMOTIDINE 20 MG TAB PO SCH ×2 (09:29→17:31)
[2020-05-09] MEDS: ALLOPURINOL 100 MG TAB PO SCH (09:29)
[2020-05-09] MEDS: ESCITALOPRAM OXALATE 10 MG TAB PO SCH (09:29)
[2020-05-09] MEDS: OXYBUTYNIN CHLORIDE XL 5 MG TAB PO SCH (09:29)
[2020-05-09] MEDS: FINASTERIDE 5 MG TAB PO SCH (09:29)
--- NOTE | 2020-05-09 14:23 | NUR ---
IMM letter delivered and explained to pt. He verbalized understanding. Copy given to pt. Signed copy placed in chart.
[2020-05-09] MEDS ORDERED: FLOMAX0.4 MG PO (18:22)
[2020-05-09] MEDS ORDERED: AMOXICILLIN250 MG PO (18:22)
--- NOTE | 2020-05-09 19:11 | NUR ---
pt DC home with Morel #[address] . Morel care instruction provided
== END 2020-05-09 19:12 | disposition home or self-care (01) | DRG 690 ==
LOC: ER 11:35 → ERHOLD 14:15 → MED/SURG3 18:19
PROVIDERS: ADMIT Internal Medicine; ATTEND Internal Medicine
DX: N39.0 Urinary tract infection, site not specified (principal); N40.1 Benign prostatic hyperplasia with lower urinary tract symptoms; I10 Essential (primary) hypertension; R33.8 Other retention of urine; M10.9 Gout, unspecified; N41.9 Inflammatory disease of prostate, unspecified; E78.5 Hyperlipidemia, unspecified; E66.9 Obesity, unspecified; Z68.32 Body mass index [BMI] 32.0-32.9, adult; R39.14 Feeling of incomplete bladder emptying; R35.1 Nocturia; B95.4 Other streptococcus as the cause of diseases classified elsewhere
CPT/HCPCS: 36415; 51700; 74178; 80048; 80053; 81001; 85025; 87086; 99284; J0290; J0696; J7030; J7050; Q9967

== ENCOUNTER 2020-05-23 12:12 | Inpatient (IN) | payer MEDICARE ==
[2020-05-20 13:30] LABS: BASOPHILS % 0.4 % (0.0-1.0); EOSINOPHILS # (AUTO) 0.1 (0.0-0.4); EOSINOPHILS % 1.1 % (0.0-6.0); HEMATOCRIT 47.7 % (38.2-49.6); HEMOGLOBIN 16.1 g/dL (14.0-18.0); LYMPHOCYTES # (AUTO) 2.3 (1.0-3.2); LYMPHOCYTES % 23.5 % (18.0-39.1); MEAN CORPUSCULAR HEMOGLOBIN 32.1 pg (28-32); MEAN CORPUSCULAR HGB CONC 33.8 g/dL (31-35); MEAN CORPUSCULAR VOLUME 95.2 fL (81-99); MONOCYTES # (AUTO) 0.8 (0.2-0.8); MONOCYTES % 7.7 % (4.4-11.3); NEUTROPHILS # (AUTO) 6.6 (2.1-6.9); NEUTROPHILS % 66.6 % (38.7-80.0); PLATELET COUNT 223 x10e3/uL (140-360); RED BLOOD COUNT 5.01 x10e6/uL (4.3-5.7); RED CELL DISTRIBUTION WIDTH 13.3 % (11.7-14.4)
[2020-05-20 14:00] LABS: ANION GAP 12.2 mmol/L (8-16); BLOOD UREA NITROGEN 15 mg/dL (7-26); BUN/CREATININE RATIO 14 (6-25); CALCIUM 8.6 mg/dL (8.4-10.2); CARBON DIOXIDE 26 mmol/L (22-29); CHLORIDE 103 mmol/L (98-107); CREATININE, SERUM 1.06 mg/dL (0.72-1.25); EST GLOMERULAR FILTRATION RATE > 60 ML/MIN (60-); GLUCOSE 85 mg/dL (74-118); POTASSIUM 4.2 mmol/L (3.5-5.1); SODIUM 137 mmol/L (136-145)
--- NOTE | 2020-05-20 14:01 | Diagnostic Imaging Report ---
X-ray chest 2 views History: Preop Comparison: None Findings: Central airways: Unremarkable. Heart: Normal size. Mediastinal silhouettes: Unremarkable. Pleural spaces: No pleural effusion or pneumothorax. Lungs: No significant focal lung disease. Skeletal structures: Unremarkable. Extrathoracic soft tissues: Unremarkable. Impression: No significant abnormality on this exam.. Signed by: David Barrera MD on 05/20/2020 1:58 PM
[~2020-05-23] VITALS: Ht 175.3 cm; Wt 102.1 kg
[~2020-05-23 12:12] MED LIST changes: +AMOXICILLIN250 MG PO; +ASPIRIN81 MG PO; +FINASTERIDE5 MG PO; +FLOMAX0.4 MG PO; +LEXAPRO10 MG PO; +LIPITOR20 MG PO; +LISINOPRIL10 MG PO; +METOPROLOL TART25 MG PO; +MYRBETRIQ50 MG PO; +PLAVIX75 MG PO; +TESTOSTERO30 MG/1.5 SC
[2020-05-23] MEDS ORDERED: SODIUM CHLORIDE 0.9% 1000ML 1,000 ML ONE (12:41)
[2020-05-23] MEDS ORDERED: PIPER-TAZ 3.375 GM 50 ML ONE (13:07)
[2020-05-23] MEDS ORDERED: GENTAMICIN 80MG/NS 100 ML 200 ML IV ONE (13:07)
[2020-05-23] MEDS ORDERED: ONDANSETRON HCL INJ 2MG/ML 2ML 2 MG/ML VIAL ONE (13:13)
[2020-05-23] MEDS ORDERED: SEVOFLURANE INHAL SOLN 250 ML PEN BTL ONE (13:13)
[2020-05-23] MEDS ORDERED: LIDOCAINE HCL 2% LOCAL INJ 5 ML SDV VIAL INJ ONE (13:13)
[2020-05-23] MEDS ORDERED: DEXAMETHASONE SOD PHOS INJ 4 MG/ML VIAL ONE (13:13)
[2020-05-23] MEDS ORDERED: PROPOFOL IV EMULSION 10 MG/ML 20 ML VIAL ONE (13:13)
[2020-05-23] MEDS ORDERED: FENTANYL CITRATE/PF 100MCG/2 ML INJ ONE (13:21)
[2020-05-23] MEDS ORDERED: MIDAZOLAM HCL 2 MG/2 ML VIAL ONE (13:21)
--- OUTSIDE RECORDS SUMMARY | 2020-05-23 14:59 | XMS REPORT | Continuity of Care Document ---
Author Author [employer], VENESSA MONGE Organization [employer] Address Unknown Phone Unavailable Care Team Providers Care Die Reamer Name Role Phone [employer] Unavailable Un available Problems Problem Status Onset Date Classification Date Reported Comments Source Pain in joint, other specified sites Active Problem [facility] Pain in joint, pelvic region and thigh Active Problem [facility] Gout, unspecified Active Problem 03/05/2014 [facility] BPH (Hypertrophy (benign) of prostate wi thout urinary obstruction and other lower urinary tract symptoms [LUTS]) Active Problem [facility] Rectal bleed Active Diagnosis 03/05/2014 [facility] Medications Medication Details Route Status Patient Instructions Ordering Provider Order Date Source Tramadol HCl 1 tablet Orally Active 50 mg Orally twice a da y (bid) as needed (prn) Ghebranious 05/22/2013 [facility] Tramadol HCl 1 tablet by mouth Active 50.0 Milligram by mouth twice a day (bid) as needed (prn) Ghebranious 05/17/2013 [facility] Testim 1 application to skin Transdermal Active 1 % Transdermal Once a day Ghebranious 10/03/2012 [facility] Vitamin C as directed Orally Active 500 MG Orally Ghebranious [facility] Allopurinol TAKE 1 TABLET DAILY NA Active 100MG Ghebranious [facility] Vitamin D as directed Orally Active 400 UNIT Orally Ghebranious [facility] Oxybutynin Chloride as directed Orally Active 15 MG Orally daily Ghebranious [facility] Allergies, Adverse Reactions, Alerts Substance Category Reaction Severity Reaction type Status Date Reported Comments Source N.K.D.A. Adverse Reaction Info Not Available Adverse Reaction Active 06/12/2013 [facility] Immunizations No [...] Provider ADM Date DC Date Status Source [facility] refill [id number] 04/17/2013 04/17/2013 [facility] refill [id number] 04/17/2013 04/17/2013 [facility] refill [id number] 04/17/2013 04/17/2013 [facility] Refill [id number] 05/22/2013 05/22/2013 [facility] Refill [id number] 05/22/2013 05/22/2013 [facility] Unknown [id number] 06/07/2013 06/07/2013 [facility] Unknown [id number] 06/08/2013 06/08/2013 [facility] HOSP F/U [id number] 06/12/2013 06/12/2013 [facility] Procedures No [...] Data Base Specialist Jun 12, 2013 06/12/2013 [facility] Family History Value Date S ource QualifierDescriptionCommentDate Reported Mother HTN Jun 12, 2013 Siblings HTN Jun 12, 2013 03/05/2014 [facility] Advance Directives No Data Provided for This Section Functional Status No Data Provided for This Section
--- OUTSIDE RECORDS SUMMARY | 2020-05-23 14:59 | XMS REPORT | Continuity of Care Document ---
Author Author [facility] t Organization [facility] Address [address] [place] [address] Phone Unavailable Care Team Providers Care Heel Coverer Name Role Phone FILIBERTO CORDOVA Attphys Unavailable JAYMIE MACKENZIE Attphys Unavailable MANISHA LOUIS M.D. Attphys Unavailable MACKENZIE, JAYMIE Admphys Unavailable Problems Condition Name Condition Details Condition Category Status Onset Date Resolution Date Last Treatment Date Treating Clinician Comments Source History of Acute embolism and thrombosis of deep vein of lower extremity History of Acute embolism and thrombosis of deep vein of lower extremity Problem Resolved [facility] History of cataract History of cataract Problem Resolved [facility] History of Hernia History of Hernia Problem Resolved [facility] History of Measles without complication History of Measles w ithout complication Problem Resolved [facility] History of mumps History of mumps Problem Resolved [facility] History of Reported Prior Prostate Trouble History of Reported Prior Prostate Trouble Problem Resolved [facility] Pre-operative cardiovascular examination Pre-operative cardiovascular examination Problem Active [facility] Hip pain, right Hip pain, right Problem Active [facility] Acute pain of right knee Acute pain of right knee Problem Active [facility] Gout, unspecified cause, unspecified chronicity, unspe cified site Gout, unspecified cause, unspecified chronicity, unspecified site Problem Active [facility] History of hemorrhoids History of hemorrhoids Problem Resolved [facility] Pain in joint, other specified sites Pain in joint, other specified sites Active Problem 03/05/2014 [facility] Problem Active 2014-03-05 04:17:55 Jeovanny marichuy Moya Pain in joint, pelvic region and thigh Pain in joint, pelvic region and thigh Active Problem 03/05/2014 [facility] Problem Active [...] urinary tract symptoms [LUTS]) Active Problem 03/05/2014 [facility] Problem Active 2014-03-05 04:17:55 Jeovanny Moya Rectal bleed Rect al bleed Active Diagnosis 03/05/2014 [facility] Diagnosis Active 2014-03-05 04:17:55 Bill Moya Allergies, Adverse Reactions, Alerts Allergy Name Allergy Type Status Severity Reaction(s) Onset Date Inacti ve Date Treating Clinician Comments Source N.KErwinA. N.Scot.A. Active Info Not Available 2013-06-12 00:00:00 Bill Moya Family History Family Member Diagnosis Comments Start Date Stop Date Source Mother Family history of Hemorrhagic Stroke [facility] Mother Family history of Diabetes Mellitus [facility] Mother Family history of Hypertension [facility] Father Family history of Cirrhosis [facility] Sister Family history of Diabetes Mellitus [facility] Brother Family history of Hypertension [facility] Unknown Family Member Family History 2014-03-05 04:17:55 2 04:17:55 Bill Moya Social History Social Habit Start Date Stop Date Quantity Comments Source children 2013-06-12 00:00:00 2013-06-12 00:00:00 Bill Moya Smoking Status Start Date Stop Date Source Former smoker [facility] Medications Ordered Medication Name Filled Medication Name Start Date Stop Da te Current Medication? Ordering Clinician Indication Dosage Frequency Signature (SIG) Comments Components Source Vitamin C 2014-03-05 04:17:55 Yes Aye Mayranious as directed [facility] Allopurinol 2014-03-05 04:17:55 Yes Aye Lealious TAKE 1 TABLET DAILY [facility] Vitamin D 2014-03-05 04:17:55 Yes Aye Ghebranious as directed [facility] Oxybutynin Chloride 2014-03-05 04:17:55 Yes Aye Leal ious as directed [facility] Tramadol HCl 2013-05-22 00:00:00 Yes Aye Mayranious 1 tablet [facility] Tramadol HCl 2013-05-17 00:00:00 Yes Amir Laloranious 1 tablet [facility] Test 2012-10-03 00:00:00 Yes Amir Ghebranious 1 application to skin [facility] Oxybutynin Chloride 5 MG Oral Tablet Oxybutynin Chloride 5 MG Oral Tablet Yes Once a day [facility] Allopurinol 100 MG Oral Tablet Allopurinol 100 MG Oral Tablet Yes QD TAKE 1 TABLET DAILY DIRECTED. [facility] Testim 1 % GEL Testim 1 % GEL Yes AP PLY 1 TUBE DAILY DIRECTED. [facility] traMADol HCl - 50 MG Oral Tablet traMADol HCl - 50 MG Oral Tablet Yes TAKE 1 TABLET EVERY 12 HOURS PRN pain [facility] Meloxicam 7.5 MG Oral Tablet Meloxicam 7.5 MG Oral Tablet Y es TAKE 1 TABLET BY MOUTH EVERY DAY [facility] Vitamin D TABS Vitamin D TABS Yes [facility] Vitamin C CAPS Vitamin C CAPS Yes [facility] Vital Signs Vital Name Observation Time Observation Value Comments Source BP Systolic 2019-07-04 14:26:00 148 mm[Hg] [facility] BP Diastolic 2019-07-04 14:26:00 81 mm[Hg] [facility] Height 2019-07-04 14:26:00 69 [in_us] [facility] Heart Rate 2019-07-04 14:26:00 55 /min [facility] BP Systolic 2018-12-15 12:16:00 134 mm[Hg] [facility] BP Diastolic 2018-12-15 12:16:00 84 mm[Hg] [facility] Height 2018-12-15 12:16:00 69 [in_us] [facility] Weight 2018-12-15 12:16:00 231 [lb_av] [facility] Body Mass Index Calculated 2018-12-15 12:16:00 34.11 kg/m2 [facility] Heart Rate 2018-12-15 12:16:00 57 /min [facility] O2 SAT 2018-12-15 12:16:00 94 % [facility] BP Systolic 2018-11-02 10:15:00 130 mm[Hg] [facility] BP Diastolic 2018-11-02 10:15:00 87 mm[Hg] [facility] Height 2018-11-02 10:15:00 69 [in_us] [facility] Weight 2018-11-02 10:15:00 235.5 [lb_av] [facility] Body Mass Index Calculated 2018-11-02 10:15:00 34.78 kg/m2 [facility] Temperature 2018-11-02 10:15:00 97.3 [degF] Method: Oral [facility] Heart Rate 2018-11-02 10:15:00 56 /min [facility] O2 SAT 2018-11-02 10:15:00 94 % [facility] Weight 2013-06-12 19:45:00 [facility] Heart Rate 2013-06-12 19:45:00 [facility] Diastolic (mm Hg) 2013-06-12 19:45:00 [facility] Systolic (mm Hg) 2013-06-12 19:45:00 [facility] Weight 2013-04-04 21:45:00 [facility] Height 2013-04-04 21:45:00 [facility] Heart Rate 2013-04-04 21:45:00 [facility] Diastolic (mm Hg) 2013-04-04 21:45:00 [facility] Systolic (mm Hg) 2013-04-04 21:45:00 [facility] Weight 2013-04-04 20:45:00 [facility] Height 2013-04-04 20:45:00 [facility] Heart Rate 2013-04-04 20:45:00 [facility] Diastolic (mm Hg) 2013-04-04 20:45:00 [facility] Systolic (mm Hg) 2013-04-04 20:45:00 [facility] Procedures Procedure Date / Time Performed Performing Clinician [facility] History of Tonsillectomy [facility] History of Prostate Surgery [facility] History of Subcutaneous Tenotomy Of Achilles Tendon [facility] History of Knee replacement [facility] Encounters Start Date/Time End Date/Time Encounter Type Admission Type Attendi [facility] Care Department Encounter ID Source 2019-07-04 13:00:00 2019-07-04 13:00:00 Appointment; MANISHA LOUIS M.D. SZETO, JOCELYN, M.D. [facility] [id number] [facility] 2019-06-19 11:00:00 2019-06-19 11:00:00 Appointment; MANISHA LOUIS M.D. SZETO, JOCELYN, M.D. [facility] [id number] [facility] 2019-02-05 18:15:00 2019-02-05 15:13:00 Inpatient [id number] 2018-12-15 11:30:00 2018-12-15 11:30:00 Appointment; MANISHA LOUIS M.D. SZETO, JOCELYN, M.D. [facility] [id number] [facility] 2018-12-13 13:00:00 2018-12-13 13:00:00 Appointment; MANISHA LOUIS M.D. SZETO, JOCELYN, M.D. [facility] [id number] [facility] 2018-11-02 09:30:00 2018-11-02 09:30:00 Appointment; MANISHA LOUIS M.D. SZETO, JOCELYN, M.D. [facility] at [facility] [id number] [facility] 2013-06-12 14:45:00 2013-06-12 14:45:00 Outpatient [facility] [id number] [employer] 2013-06-07 18:11:00 2013-06-07 18:11:00 Outpatient [facility] [id number] [employer] 2013-04-17 12:09:00 2013-04-17 12:09:00 Outpatient [facility] [id number] [employer] Results Test Description Test Time Test Comments Results Result Comments Source CHEST 2 VIEWS 2020-05-20 13:56:[address] [facility] 1950 Sex: M [facility] [address] [address] Patient Name: VENESSA LUNA JR MR #: [id number] : 1950 Age/Sex: 70/M Req #: [id number] [facility] Physician: Ordered by: FILIBERTO CORDOVA MD Report #: [id number] Location: OR Room/Bed: Procedure: [id number] DX/CHEST 2 VIEWS Exam Date: 05/20/20 Exam Time: 1335 REPORT STATUS: Signed X-ray chest 2 views History: Preop Comparison: None Findings: Central airways: Unremarkable. Heart: Normal size. Mediastinal silhouettes: Unremarkable. Pleural spaces: No pleural effusion or pneumothorax. Lungs: No significant focal lung disease. Skeletal structures: Unremarkable. Extrathoracic soft tissues: Unremarkable. Impression: No significant abnormality on this exam.. Signed by: David Cline MD on 05/20/2020 1:58 PM Dictated By: DAVID CLINE MD 1359 Transcribed By: ANGEL on 05/20/20 1354 COPY TO: FILIBERTO CORDOVA MD CT ABDOMEN/PELVIS WOW 2020-05-08 12:21:[address] [facility] [address] 1950 Sex: M [facility] [address] [address] Patient Name: VENESSA LUNA JR MR #: [id number] : 1950 Age/Sex: 70/M Req #: [id number] Adm Physician: JAYMIE MACKENZIE MD Ordered by: JAYMIE MACKENZIE MD Report #: [id number] [facility]: [facility]SURG[facility] Room/Bed: [facility] Procedure: [id number] CT/CT ABDOMEN/PELVIS WO Exam Date: 05/08/20 Exam Time: 1115 REPORT STATUS: Signed CT of the abdomen and pelvis with contrast TECHNIQUE: CT of the abdomen and pelvis CT of the abdomen and pelvis with contrast TECHNIQUE: CT of the abdomen and pelvis WITHOUT and WITH intravenous contrast and WITHOUT oral contrast. Dose modulation, iterative reconstruction, and/or weight-based adjustment of the mA/kV was utilized to reduce the radiation dose to as low as reasonably achievable. IV CONTRAST: 100 mL of Isovue-370 ORAL CONTRAST: None RADIATION DOSE: Total DLP: 1757 mGy*cm COMPLICATIONS: None INDICATION: HEMATURIA PROTOCOL [id number] 1115. COMPARISON: None. FINDINGS: LOWER THORAX: Dependent subsegmental atelectasis is noted. Coronary artery calcifications are noted. Small hiatal hernia is noted. HEPATOBILIARY: No focal hepatic lesions. Gallbladder is unremarkable. No biliary ductal dilatation. SPLEEN: No splenomegaly. PANCREAS: No focal masses or ductal dilatation. ADRENALS: No adrenal nodules. KIDNEYS/URETERS: Noncontrast images are negative for renal calculus. Negative for ureteral or bladder calculus. Postcontrast images damages symmetric cortical enhancement without suspicious enhancing mass. Symmetric excretion of contrast is noted within nondilated ureters. Negative for intraluminal upper urinary tract filling defect. PELVIC ORGANS/BLADDER: Urinary bladder is decompressed by Morel catheter with a few foci of air. There is questionable wall thickening versus artifact of underdistention. Prostate is enlarged measuring approximately 6.1 x 5.0 x 4.4 cm for a total volume of 87 cc. PERITONEUM/RETROPERITONEUM: No free air or fluid. Supraumbilical fat-containing hernia is noted. Umbilical fat-containing hernia is noted. LYMPH NODES: No lymphadenopathy. VESSELS: Negative for abdominal aortic aneurysm. GI TRACT: Negative for bowel obstruction. Stomach and portions of the colon are decompressed limiting evaluation. Normal appendix is noted. Numerous diverticula are identified within the sigmoid colon without surrounding inflammatory changes. BONES AND SOFT TISSUES: No acute osseous abnormality. Advanced facet arthropathy the lower lumbar spine is noted. Mild to moderate multilevel disc space narrowing is noted. No suspicious lytic or blastic lesion is noted. Postsurgical change from partially visualized right hip arthroplasty are noted. Moderate to severe degenerative change of the left hip joint space is noted with near complete joint space loss, particular sclerosis and large osteophyte formation. Pubic symphysis is not widened. Soft tissues are unremarkable. IMPRESSION: 1. Negative for nephrolithiasis. Symmetric cortical enhancement without suspicious mass or intraluminal upper urinary tract filling defect is noted. 2. Urinary bladder is decompressed by Morel catheter with questionable wall thickening. 3. Prostatomegaly. 4. Uncomplicated colonic diverticulosis. 5. Coronary artery calcifications. 6. Small hiatal hernia. 7. Fat-containing supraumbilical and umbilical hernias. 8. Severe osteoarthritis of the left hip. Advanced facet arthropathy the lower lumbar spine. Postsurgical changes from right hip arthr oplasty. Signed by: Gabriela Toney MD on 05/08/2020 12:32 PM Dictated By: GABRIELA TONEY MD 1232 Transcribed By: ANGEL on 05/08/20 1232 COPY TO: JAYMIE MACKENZIE MD [[facility]] CMP W/EGFR 2018-11-02 10:33:01 Test Item Sodium Level (test code = 2951-2) 138 {mEq/l} 135-145 Potassium Level (test code = 2823-3) 4.3 {mEq/l} 3.5-5.1 Chloride Level (test code = 5-0) 103 {mEq/l} 95-109 Carbon Dioxide (test code = 2027-9) 28 {mEq/l} 24-32 AGAP (test code = 05937-9) 11.3 {mEq/l} 10.0-20.0 Glucose Lvl (test code = 2345-7) 96 mg/dl 70-99 Adult reference range values reflect the clinical guidelinesof the [place] [employer]. Creatinine Lvl (test code = 2160-0) 1.20 mg/dl 0.50-1.40 Blood Urea Nitrogen (test code = 3094-0) 16 mg/dl 7-22 BUN/Creatinine Ratio (test code = 3097-3) 13 6-25 Total Protein (test code = 2885-2) 7.5 g/dl 6.4-8.4 Albumin Lvl (test code = 1751-7) 4.0 g/dl 3.5-5.0 Globulin (test code = 62526-7) 3.5 g/dl 2.7-4.2 A/G Ratio (test code = 1759-0) 1.1 0.7-1.6 Calcium Level Total (test code = 63466-3) 8.6 mg/dl 8.5-10.5 ALT (test code = 1743-4) 27 u/l 0-65 AST (test code = 55217-9) 13 u/l 0-37 Bili Total; Above High Threshold (test code = 1974-2) 1.5 mg/dl 0.2-1.3 Alk Phos (test code = 1783-0) 53 u/l 39-136 eGFR (test code = 73786-4) 61 {ML/MIN/1.7} The eGFR is calculated using [...] eGFR shouldbe multiplied by the estimated BMI. [facility]] URIC [id number] 10:33:01* Test Item Value Reference Range Interpretation Comments Uric Acid (test code = 3084-1) 6.2 mg/dl 3.8-8.0 [facility][U] XRAY KNEE 4 OR MORE VWS RIGHT [id number] 09:36:00Images acquired, not reported on this accession number.[facility]
[2020-05-23] MEDS ORDERED: IOPAMIDOL 300MG/ML 50ML INFUS..BTL IV ONE (15:59)
[2020-05-23] MEDS ORDERED: B&O 60MG R/S 60 MG SUPP PR ONE (16:00)
[2020-05-23] MEDS ORDERED: DIPHENHYDRAMINE HCL 25 MG CAP PO PRN (17:00)
[2020-05-23] MEDS ORDERED: PHENAZOPYRIDINE HCL 100 MG TAB PO PRN (17:00)
[2020-05-23] MEDS ORDERED: B&O 60MG R/S 60 MG SUPP PR PRN (17:00)
[2020-05-23] MEDS ORDERED: ONDANSETRON HCL INJ 2MG/ML 2ML 2 MG/ML VIAL IV PRN (17:00)
[2020-05-23 17:28] LABS: BASOPHILS # (AUTO) 0.1 (0.0-0.1); BASOPHILS % 0.5 % (0.0-1.0); EOSINOPHILS # (AUTO) 0.1 (0.0-0.4); EOSINOPHILS % 1.5 % (0.0-6.0); HEMATOCRIT 47.3 % (38.2-49.6); HEMOGLOBIN 15.8 g/dL (14.0-18.0); LYMPHOCYTES # (AUTO) 2.3 (1.0-3.2); LYMPHOCYTES % 24.4 % (18.0-39.1); MEAN CORPUSCULAR HEMOGLOBIN 32.4 pg (28-32); MEAN CORPUSCULAR HGB CONC 33.4 g/dL (31-35); MEAN CORPUSCULAR VOLUME 96.9 fL (81-99); MONOCYTES # (AUTO) 0.6 (0.2-0.8); MONOCYTES % 6.4 % (4.4-11.3); NEUTROPHILS # (AUTO) 6.4 (2.1-6.9); NEUTROPHILS % 66.5 % (38.7-80.0); PLATELET COUNT 220 x10e3/uL (140-360); RED BLOOD COUNT 4.88 x10e6/uL (4.3-5.7); RED CELL DISTRIBUTION WIDTH 13.2 % (11.7-14.4)
[2020-05-23 17:50] LABS: ANION GAP 12.1 mmol/L (8-16); BLOOD UREA NITROGEN 12 mg/dL (7-26); BUN/CREATININE RATIO 10 (6-25); CALCIUM 8.1 mg/dL (8.4-10.2); CARBON DIOXIDE 25 mmol/L (22-29); CHLORIDE 104 mmol/L (98-107); CREATININE, SERUM 1.18 mg/dL (0.72-1.25); EST GLOMERULAR FILTRATION RATE > 60 ML/MIN (60-); GLUCOSE 91 mg/dL (74-118); POTASSIUM 4.1 mmol/L (3.5-5.1); SODIUM 137 mmol/L (136-145)
--- NOTE | 2020-05-23 17:50 | NUR ---
RECEIVED PATIENT VIA STRETCHER FROM PACU. AAOX4 TO TIME,PERSON, PLACE, SITUATION. RESPIRATIONS EVEN AND UNLABORED. ON CONTINUOUS IRRIGATION. BLOODY URINE NOTED. ORIENTED TO ROOM. INSTRUCTED TO USE CALL LIGHT FOR ASSISTANCE. VOICED UNDERSTANDING.
[2020-05-23] MEDS: ACETAMINOPHEN/CODEINE 300MG - 30MG TAB PO PRN (18:00)
[2020-05-23] MEDS: D5.45%NS/KCL 20MEQ 1,000 ML IV SCH (18:29)
[2020-05-23 18:31] VITALS: BP 131/79
[2020-05-23] MEDS: DOCUSATE SODIUM 100 MG CAP PO SCH (18:31)
[2020-05-23 18:35] VITALS: BP 131/79
[2020-05-23 18:49] VITALS: BP 131/79
--- NOTE | 2020-05-23 19:14 | NUR ---
REPORT GIVEN TO ONCOMING NURSE OF PATIENT'S STATUS. NO S/S OF ACUTE DISTRESS NOTED. ON CONTINUOS IRRIGATION. SIDE RAILS UPX2, CALL LIGHT WITHIN REACH, AT BEDSIDE.
[2020-05-23 20:00] VITALS: BP 128/78
[2020-05-23 22:00] VITALS: BP 128/78
[2020-05-23] MEDS: PIPER-TAZ 3.375 GM 50 ML IV SCH (22:00)
[2020-05-24] VITALS (8 sets, daily range): BP systolic 98–109; BP diastolic 62–71
--- NOTE | 2020-05-24 01:00 | Operative Report ---
DATE OF PROCEDURE: 05/23/2020 SURGEON: Win Lynn MD PREOPERATIVE DIAGNOSES: 1. Obstructive benign prostatic hypertrophy. 2. Hematuria. 3. Urinary tract infection. POSTOPERATIVE DIAGNOSES: 1. Obstructive benign prostatic hypertrophy. 2. Hematuria. 3. Urinary tract infection. OPERATIONS PERFORMED: Note, these are staged procedures as part of a multi-step process of managing the patient's very large benign prostatic hypertrophy. 1. Cystourethroscopy with bilateral ureteral catheterization and retrograde ureteropyelography (separate procedure performed for the hematuria and urinary tract infection). 2. Interpretation of retrograde ureteropyelography, no radiologist present. 3. Cystourethroscopy with transurethral resection of the prostate (separate procedure performed for the obstructing benign prostatic hypertrophy). ANESTHESIA: General. COMPLICATIONS: None. CLINICAL SUMMARY: Avinash Miller is a 70-year-old man with the above preoperative diagnoses. He has had a previous transurethral prostatectomy. However, the patient has residual tissue. He has had episodes of gross hematuria as well as urinary tract infection. The patient was originally going to have an another stage TURP in July, but due to more acute problems with hematuria and urinary tract infections, the patient elected to move that date up. He is aware of the risks of bleeding, infection, injury to adjacent structures, incontinence, impotence, retrograde ejaculation, need for additional procedures and elected to proceed. OPERATIVE PROCEDURE IN DETAIL: Informed consent was verified. Avinash Miller was properly identified, taken to the operating room, placed on the cystoscopy table in the supine position. Anesthesia was uneventfully begun. The patient was carefully and gently repositioned in the dorsal lithotomy position with all pressure points well padded. His genitalia were prepared and draped in usual sterile fashion. The cystoscope sheath with the visual obturator in place was atraumatically inserted into the patient's urethra. It was guided down the unremarkable distal urethra through the normal sphincteric region through the prostate bed, which exhibited a scar down the verumontanum presumably from prior procedures. There was regrowth of tissue and collapsing residual prostate tissue. There was obstructing the prostatic urethra, especially at the apical region. The bladder neck was relatively open. We entered the patient's bladder where panendoscopy revealed trabeculations, but no suspicious lesions were identified. An 8-Nepali catheter was used to cannulate each ureter and retrograde ureteral pyelograms were performed. Interpretation of retrograde ureteropyelography, contrast was instilled in retrograde fashion bilaterally. There were no tumors. There were no stones. There were no diverticula. Unobstructed drainage was observed bilaterally fluoroscopically. J-hooking was noted. The cystoscope was withdrawn. The resectoscope was atraumatically placed utilizing an obturator. We then proceeded with performing transurethral resection of the prostate from the bladder neck tube, but never passed the verumontanum and down the surgical capsule. All chips were evacuated. Hemostasis was obtained with pinpoint electrocautery. The resectoscope was withdrawn. A Morel catheter was placed. It was irrigated to and fro to ensure it worked properly. It was placed in continuous bladder irrigation. A belladonna and opium suppository were placed revealing a large smooth prostate that is nonfluctuant without any nodules. The patient was then uneventfully reversed from anesthesia and taken to recovery room in stable condition. There were no complications to the procedure. He tolerated the procedure well. We will proceed with routine postoperative care and ongoing urological followup. Win Lynn MD [place]/MODL /[id number] cc: Roberta Liu MD
[2020-05-24] MEDS: D5.45%NS/KCL 20MEQ 1,000 ML IV SCH (02:55)
[2020-05-24] MEDS: PIPER-TAZ 3.375 GM 50 ML IV SCH ×3 (05:52→22:00)
[2020-05-24 06:43] LABS: BASOPHILS # (AUTO) 0.1 (0.0-0.1); BASOPHILS % 0.4 % (0.0-1.0); HEMATOCRIT 42.9 % (38.2-49.6); HEMOGLOBIN 14.9 g/dL (14.0-18.0); LYMPHOCYTES # (AUTO) 1.1 (1.0-3.2); LYMPHOCYTES % 7.8 % (18.0-39.1); MEAN CORPUSCULAR HEMOGLOBIN 33.3 pg (28-32); MEAN CORPUSCULAR HGB CONC 34.7 g/dL (31-35); MEAN CORPUSCULAR VOLUME 95.8 fL (81-99); MONOCYTES # (AUTO) 0.9 (0.2-0.8); MONOCYTES % 6.4 % (4.4-11.3); NEUTROPHILS # (AUTO) 11.7 (2.1-6.9); PLATELET COUNT 230 x10e3/uL (140-360); RED BLOOD COUNT 4.48 x10e6/uL (4.3-5.7); RED CELL DISTRIBUTION WIDTH 13.1 % (11.7-14.4)
[2020-05-24 07:03] LABS: ANION GAP 10.1 mmol/L (8-16); BLOOD UREA NITROGEN 11 mg/dL (7-26); BUN/CREATININE RATIO 11 (6-25); CALCIUM 7.8 mg/dL (8.4-10.2); CARBON DIOXIDE 23 mmol/L (22-29); CHLORIDE 105 mmol/L (98-107); CREATININE, SERUM 0.98 mg/dL (0.72-1.25); EST GLOMERULAR FILTRATION RATE > 60 ML/MIN (60-); GLUCOSE 137 mg/dL (74-118); POTASSIUM 4.1 mmol/L (3.5-5.1); SODIUM 134 mmol/L (136-145)
[2020-05-24] MEDS ORDERED: HYDRALAZINE HCL 25 MG TAB PO PRN (07:45)
--- NOTE | 2020-05-24 08:22 | History and Physical ---
CHIEF COMPLAINT: The patient is status post TURP. Continuous urinary bladder irrigation. Gross hematuria. The postoperative pain. HISTORY OF PRESENT ILLNESS: The patient is a 70-year-old male, today May 23, 2020, status post TURP procedures secondary to obstructive BPH associated with recurrent prostatitis and urinary tract infection. At baseline, the patient also has coronary artery disease with previous MN 2019. He had a stent to the LAD and the PTCA to the diagonal. The patient also has hyperlipidemia, hypertension and depression, but basically all his chronic medical problem was stable. The patient is now status post procedures. He will get continuous urinary bladder irrigation because of gross hematuria and to prevent clotting. The patient is stable. Medication postop reviewed. PAST MEDICAL HISTORY: Coronary artery disease with previous MN 2019, stent to the LAD and PTCA to the diagonal. The patient is stable with coronary artery disease. Hypertension. Dyslipidemia. Anxiety, depression. Enlarged prostate. Hypogonadism. PAST SURGICAL HISTORY: A stent and PTCA as above. Status post TURP. SOCIAL HISTORY: The patient does not smoke or use alcohol. No regular drug use. ALLERGIES: NO KNOWN ALLERGIES. HOME MEDICATION: Allopurinol, amoxicillin, aspirin, Lipitor, Plavix, Lexapro, finasteride, metoprolol tartrate, Myrbetriq, Flomax, and testosterone injections. REVIEW OF SYSTEMS: Gross hematuria. Penile pain with a catheter. No chest pain. No shortness of breath. No abdominal pain. Some pelvic discomfort because of Morel catheter. No headache. No focal deficit. PHYSICAL EXAMINATION: VITAL SIGNS: Temperature is 98, blood pressure 98/62, pulse rate 62, respirations 18. GENERAL: The patient is not in acute distress. HEENT: Normocephalic and atraumatic. He is anicteric. Neck: Supple. No JVD. No carotid bruit. No adenopathy. PULMONARY: Diminished breath sounds bilaterally without any wheezing or rales. CARDIOVASCULAR: S1 and S2. Regular rate and rhythm. No gross murmur, gallop, or rub. ABDOMEN: Soft, some pressure, but no tenderness. No rebound. No guarding. Positive bowel sounds. PELVIC: Morel catheter in place. There is some thin blood along the penile meatus with the Morel catheter, but otherwise no swelling. No sign of infection. EXTREMITIES: No cyanosis or edema. NEUROLOGIC: No focal deficit. The patient moving all extremities. He is awake and alert x4. LABORATORY DATA: Sodium is 134, potassium 4.1, chloride 105, bicarb 23, BUN 11, creatinine 0.9, glucose 137. WBC is 13.7, hemoglobin 14.9, hematocrit 42.9, platelets 230. ASSESSMENT: 1. Status post cystoscopy with TURP. Reason for that is obstructive enlarged prostate associated with recurrent urinary tract infection and prostatitis. The patient is currently receiving continuous urinary bladder irrigation. 2. Baseline coronary artery disease, taking Plavix, on hold now. It is stable. 3. Hypertension. 4. Dyslipidemia. 5. Depression anxiety disorder, all stable. 6. Leukocytosis most likely reactive. 7. Postoperative pain, stable on pain medication. PLAN: Continue with urinary bladder irrigation. There is hematuria, but improving. Preventing clotting for comfort. Pain medication. Adjust medication. Home medication resumed, but we will hold Plavix for now. SCD. Incentive spirometry. Discontinue IV fluids once the patient is able to eat. Continue with pain control. I will resume home medications to be soon. MD KELLEY Mak/REED /[id number]
[2020-05-24] MEDS: FINASTERIDE 5 MG TAB PO SCH (08:54)
[2020-05-24] MEDS: DOCUSATE SODIUM 100 MG CAP PO SCH ×2 (08:54→17:53)
[2020-05-24] MEDS: ALLOPURINOL 100 MG TAB PO SCH (08:54)
[2020-05-24] MEDS: TAMSULOSIN HCL 0.4 MG CAP PO SCH ×2 (08:54→17:53)
[2020-05-24] MEDS: ESCITALOPRAM OXALATE 10 MG TAB PO SCH (08:54)
[2020-05-24] MEDS: METOPROLOL TARTRATE 25 MG TAB PO SCH ×2 (08:55→17:54)
[2020-05-24] MEDS: SODIUM CHLORIDE 0.9% 1000ML 1,000 ML IV SCH ×3 (12:26→23:51)
[2020-05-24] MEDS: ATORVASTATIN 40 MG TAB PO SCH (21:45)
[2020-05-25] VITALS (9 sets, daily range): BP systolic 97–120; BP diastolic 64–73
[2020-05-25] MEDS: PIPER-TAZ 3.375 GM 50 ML IV SCH ×3 (06:00→22:00)
[2020-05-25 06:18] LABS: BASOPHILS # (AUTO) 0.1 (0.0-0.1); BASOPHILS % 0.4 % (0.0-1.0); EOSINOPHILS # (AUTO) 0.3 (0.0-0.4); EOSINOPHILS % 2.6 % (0.0-6.0); HEMATOCRIT 39.9 % (38.2-49.6); LYMPHOCYTES # (AUTO) 1.8 (1.0-3.2); LYMPHOCYTES % 14.4 % (18.0-39.1); MEAN CORPUSCULAR HEMOGLOBIN 33.7 pg (28-32); MEAN CORPUSCULAR HGB CONC 35.1 g/dL (31-35); MEAN CORPUSCULAR VOLUME 96.1 fL (81-99); MONOCYTES # (AUTO) 1.1 (0.2-0.8); MONOCYTES % 9.3 % (4.4-11.3); NEUTROPHILS # (AUTO) 8.9 (2.1-6.9); NEUTROPHILS % 72.8 % (38.7-80.0); PLATELET COUNT 179 x10e3/uL (140-360); RED BLOOD COUNT 4.15 x10e6/uL (4.3-5.7); RED CELL DISTRIBUTION WIDTH 13.6 % (11.7-14.4)
[2020-05-25 06:32] LABS: ANION GAP 9.9 mmol/L (8-16); BLOOD UREA NITROGEN 11 mg/dL (7-26); BUN/CREATININE RATIO 11 (6-25); CALCIUM 7.8 mg/dL (8.4-10.2); CARBON DIOXIDE 25 mmol/L (22-29); CHLORIDE 107 mmol/L (98-107); CREATININE, SERUM 1.03 mg/dL (0.72-1.25); EST GLOMERULAR FILTRATION RATE > 60 ML/MIN (60-); GLUCOSE 81 mg/dL (74-118); POTASSIUM 3.9 mmol/L (3.5-5.1); SODIUM 138 mmol/L (136-145)
[2020-05-25] MEDS: ALLOPURINOL 100 MG TAB PO SCH (09:25)
[2020-05-25] MEDS: FINASTERIDE 5 MG TAB PO SCH (09:25)
[2020-05-25] MEDS: DOCUSATE SODIUM 100 MG CAP PO SCH ×2 (09:25→17:44)
[2020-05-25] MEDS: TAMSULOSIN HCL 0.4 MG CAP PO SCH ×2 (09:25→17:44)
[2020-05-25] MEDS: ESCITALOPRAM OXALATE 10 MG TAB PO SCH (09:25)
[2020-05-25] MEDS: METOPROLOL TARTRATE 25 MG TAB PO SCH ×2 (09:27→17:44)
[2020-05-25] MEDS: ACETAMINOPHEN/CODEINE 300MG - 30MG TAB PO PRN (09:35)
[2020-05-25] MEDS ORDERED: ACETAMINOPHEN 325 MG TAB PO PRN (10:00)
[2020-05-25] MEDS ORDERED: BENZONATATE 100 MG CAP PO PRN (10:00)
[2020-05-25] MEDS: LORATADINE 10 MG TAB PO SCH (11:04)
[2020-05-25] MEDS: FLUTICASONE PROPIONATE NASAL SPRAY NS SCH ×2 (13:42→17:39)
[2020-05-25] MEDS: SODIUM CHLORIDE 0.9% 1000ML 1,000 ML IV SCH (15:38)
[2020-05-25] MEDS: ATORVASTATIN 40 MG TAB PO SCH (21:18)
[2020-05-26 05:05] VITALS: BP 125/75
[2020-05-26] MEDS: SODIUM CHLORIDE 0.9% 1000ML 1,000 ML IV SCH (05:22)
[2020-05-26 05:35] LABS: BASOPHILS # (AUTO) 0.1 (0.0-0.1); BASOPHILS % 0.6 % (0.0-1.0); EOSINOPHILS # (AUTO) 0.4 (0.0-0.4); HEMATOCRIT 41.6 % (38.2-49.6); HEMOGLOBIN 13.9 g/dL (14.0-18.0); LYMPHOCYTES # (AUTO) 2.1 (1.0-3.2); LYMPHOCYTES % 23.9 % (18.0-39.1); MEAN CORPUSCULAR HEMOGLOBIN 31.9 pg (28-32); MEAN CORPUSCULAR HGB CONC 33.4 g/dL (31-35); MEAN CORPUSCULAR VOLUME 95.4 fL (81-99); MONOCYTES # (AUTO) 0.9 (0.2-0.8); MONOCYTES % 10.5 % (4.4-11.3); NEUTROPHILS # (AUTO) 5.4 (2.1-6.9); NEUTROPHILS % 60.4 % (38.7-80.0); PLATELET COUNT 185 x10e3/uL (140-360); RED BLOOD COUNT 4.36 x10e6/uL (4.3-5.7); RED CELL DISTRIBUTION WIDTH 13.7 % (11.7-14.4)
[2020-05-26] MEDS: PIPER-TAZ 3.375 GM 50 ML IV SCH (05:50)
[2020-05-26 05:54] LABS: BLOOD UREA NITROGEN 10 mg/dL (7-26); BUN/CREATININE RATIO 10 (6-25); CALCIUM 7.9 mg/dL (8.4-10.2); CARBON DIOXIDE 26 mmol/L (22-29); CHLORIDE 106 mmol/L (98-107); CREATININE, SERUM 1.04 mg/dL (0.72-1.25); EST GLOMERULAR FILTRATION RATE > 60 ML/MIN (60-); GLUCOSE 83 mg/dL (74-118); SODIUM 138 mmol/L (136-145)
[2020-05-26 08:40] VITALS: BP 143/83
[2020-05-26] MEDS: FINASTERIDE 5 MG TAB PO SCH (09:09)
[2020-05-26] MEDS: ALLOPURINOL 100 MG TAB PO SCH (09:09)
[2020-05-26] MEDS: ESCITALOPRAM OXALATE 10 MG TAB PO SCH (09:09)
[2020-05-26] MEDS: TAMSULOSIN HCL 0.4 MG CAP PO SCH (09:09)
[2020-05-26] MEDS: METOPROLOL TARTRATE 25 MG TAB PO SCH (09:09)
[2020-05-26] MEDS: LORATADINE 10 MG TAB PO SCH (09:09)
[2020-05-26] MEDS: DOCUSATE SODIUM 100 MG CAP PO SCH (09:09)
[2020-05-26] MEDS: FLUTICASONE PROPIONATE NASAL SPRAY NS SCH (09:09)
--- NOTE | 2020-05-26 09:14 | NUR ---
vergara discontinued as ordered and patient doing serial urines for possible d/c later today.
--- NOTE | 2020-05-26 10:15 | NUR ---
EDUCATED ABOUT IMM, SIGNED, FILED IN CHART, WITH COPY LEFT WITH FAMILY AT BEDSIDE.
[2020-05-26 12:47] VITALS: BP 131/93
[2020-05-26] MEDS ORDERED: TYLENOL # 31 EA PO (13:15)
[2020-05-26] MEDS ORDERED: PENICILLIN V P500 MG PO (13:15)
[2020-05-26] MEDS ORDERED: LEVOFLOXACIN250 MG PO (13:15)
[2020-05-26] MEDS ORDERED: ONDANSETRON HCL 4 MG ORAL DISINTEGRATING TAB PO PRN (14:15)
--- NOTE | 2020-05-27 10:15 | Discharge Summary ---
CONSULTING PHYSICIAN: Win Lynn MD. FINAL DIAGNOSES: 1. Recurrent prostatitis/cystitis and urinary tract infection associated with urinary outlet obstruction secondary to enlarged prostate. 2. Status post cystoscopy with TURP. 3. Postop gross hematuria and require saline and urinary bladder continuous irrigation to prevent clotting and obstruction. 4. Electrolyte deficit status post correction. 5. Chronic medical problem including hypertension, under control. SUMMARY: The patient is a 70-year-old male with a very enlarged prostate. The patient with urinary retention and recurrent urinary tract infection associated with gross hematuria and urinary bladder obstruction. The patient underwent surgical intervention on May 23, [address] Win Lynn with a cystoscopy and TURP. Postoperatively, the patient with gross hematuria and because of his recurrent retention and gross hematuria with clotting. The patient was admitted for continuous urinary bladder irrigation. Gross hematuria, improving. Clotting prevented. The patient's pain controlled. He is stable. IV fluid was given. He subsequently started on diet and tolerated. Increase activity and able to ambulate. Incentive spirometry giving postoperative care routine protocol. The patient is stable, continued to do well, improving. Morel catheter discontinued. The patient is able to urinate. No obstruction. No gross hematuria postoperatively after irrigation. The patient was cleared by Dr. Win Lynn, his surgeon. The patient discharged home. Prescription given by Dr. Win Lynn. The patient will return to home. Continue his home medication and follow up closely with Dr. Win Lynn. Discussed with the patient regarding medication and followup. ACTIVITY: As tolerated. DIET: Resume home diet. MEDICATIONS: Resume home medication. Prescription by Dr. Win Lynn. MD KELLEY Mak/TRACIEL /[id number]
== END 2020-05-26 14:05 | disposition home or self-care (01) | DRG 713 ==
LOC: OR 12:12 → PACU V 14:33 → MED/SURG 17:50
PROVIDERS: ADMIT Internal Medicine; ATTEND Internal Medicine
PROC: BT141ZZ Fluoroscopy of Kidneys, Ureters and Bladder using Low Osmolar Contrast (ICD-10-PCS; principal; 2020-05-23 14:30)
PROC: 0VB08ZZ Excision of Prostate, Via Natural or Artificial Opening Endoscopic (ICD-10-PCS; 2020-05-23 14:30)
DX: N40.0 Benign prostatic hyperplasia without lower urinary tract symptoms (principal); N39.0 Urinary tract infection, site not specified; N13.8 Other obstructive and reflux uropathy; I10 Essential (primary) hypertension; I25.10 Atherosclerotic heart disease of native coronary artery without angina pectoris; E78.5 Hyperlipidemia, unspecified; F32.9 Major depressive disorder, single episode, unspecified; N40.1 Benign prostatic hyperplasia with lower urinary tract symptoms; Z95.5 Presence of coronary angioplasty implant and graft; E66.9 Obesity, unspecified; Z68.33 Body mass index [BMI] 33.0-33.9, adult; K21.9 Gastro-esophageal reflux disease without esophagitis; F41.9 Anxiety disorder, unspecified; Z86.718 Personal history of other venous thrombosis and embolism; I25.2 Old myocardial infarction; N41.9 Inflammatory disease of prostate, unspecified; Z20.828 Contact with and (suspected) exposure to other viral communicable diseases
CPT/HCPCS: 36415; 71046; 74420; 80048; 83735; 85025; 88305; 93005; C1758; J1100; J1580; J2001; J2250; J2405; J2543; J3010; J7030

== ENCOUNTER 2022-11-12 14:00 | Outpatient (RCR) | payer MEDICARE ==
[~2022-11-12 14:00] MED LIST changes: +LEVOFLOXACIN250 MG PO; +TYLENOL # 31 EA PO
== END 2022-11-14 ==
LOC: PT 14:00
PROVIDERS: ATTEND Specialist
DX: M16.12 Unilateral primary osteoarthritis, left hip (principal)

== ENCOUNTER → 2022-12-15 | Outpatient (RCR) | payer MEDICARE | LOC: PT 11-15 10:18 | PROVIDERS: ATTEND Specialist | DX: M16.12 Unilateral primary osteoarthritis, left hip (principal) ==

== ENCOUNTER 2022-12-22 13:52 | Outpatient (RCR) | payer MEDICARE | END 2023-01-14 | LOC: PT 13:52 | PROVIDERS: ATTEND Specialist | DX: M16.12 Unilateral primary osteoarthritis, left hip (principal) ==